=== PATIENT | female | born 1975 | race Caucasian/White ===

== ENCOUNTER 2022-09-19 09:59 | Outpatient (RCR) | payer OTHER, SELFPAY | END 2022-10-15 15:34 | disposition home or self-care (01) | LOC: PT 09:59 | PROVIDERS: PCP Family Medicine | DX: M25.569 Pain in unspecified knee (principal); S83.92XD Sprain of unspecified site of left knee, subsequent encounter | CPT/HCPCS: 97010; 97014; 97032; 97035; 97110; 97140; 97161; G0283 ==

== ENCOUNTER 2023-01-07 12:57 | Outpatient (RCR) | payer OTHER, SELFPAY | END 2023-04-06 09:00 | disposition home or self-care (01) | LOC: PT 12:57 | PROVIDERS: PCP Family Medicine; Visit Provider Orthopaedic Surgery | DX: Z98.890 Other specified postprocedural states (principal) | CPT/HCPCS: 97010; 97014; 97110; 97140; 97161 ==

== ENCOUNTER 2023-04-07 08:40 | Outpatient (RCR) | payer OTHER, SELFPAY | END 2023-04-11 14:52 | disposition home or self-care (01) | LOC: PT 08:40 | PROVIDERS: PCP Family Medicine; Visit Provider Orthopaedic Surgery | DX: Z98.890 Other specified postprocedural states (principal) | CPT/HCPCS: 97110; 97140 ==

== ENCOUNTER 2023-05-09 10:23 | Outpatient (OUT) | payer OTHER, SELFPAY ==
--- NOTE | 2023-05-09 10:32 | XR_ITS ---
The [address] [address] Patient Name: FIORELLA PERKINS MRN: [id number] date: 1975 Sex: F Assigned Patient Location: [facility] Current Patient Location: RAD Accession/Order Number: [id number] Exam Date: 05/09/2023 10:37 Report Date: 05/09/2023 11:00 At the request of: KACY CROOKS Procedure: XR calcaneus RT min 2V PROCEDURE: XR calcaneus RT min 2V DATE: 05/09/2023 10:37 AM EST COMPARISONS: None CLINICAL INDICATION: intractable right heel pain M79.671 FINDINGS: There is no evidence of fractures or other acute osseous abnormalities. There is a small spur off the posterior inferior os calcis. There are slightly talonavicular degenerative changes noted on lateral view. XR/XR calcaneus RT min 2V IMPRESSION: Right os calcis radiographs show no evidence of acute abnormalities. Small heel spur Electronically authenticated by: JOSUE POE Date: 05/09/2023 11:00
== END 2023-05-09 10:24 | disposition home or self-care (01) ==
LOC: RAD 10:28
PROVIDERS: PCP Family Medicine; Visit Provider Physician Assistant
DX: M79.671 Pain in right foot (principal)
CPT/HCPCS: 73650

== ENCOUNTER 2024-12-31 09:02 | Outpatient (OUT) | payer BC, SELFPAY ==
--- NOTE | 2024-12-31 09:15 | CA_ITS ---
Patient Name: FIORELLA PERKINS MR#: [id number] : 1975 Exam Date: 12/31/2024 Ordering Doctor: DR KACY BRYAN ECHOCARDIOGRAM REPORT PROCEDURE: CA ECHO DOPPLER COMPLETE INDICATIONS: HTN, Bilateral BHARATH, RIGO, ZHENG, Chest tightness, fatigue COMPARISON: None. DESCRIPTION: COMPLETE ECHOCARDIOGRAM Real-time transthoracic echocardiography with 2D, M-mode, spectral and color flow Doppler performed. QUALITY: Technical quality was good. LEFT VENTRICLE: The left ventricle is normal in size. Global left ventricular systolic function is normal. LV EF: Estimated left ventricular ejection fraction is 60-65%. DIASTOLIC: Normal diastolic function. ATRIAL SEPTUM: LEFT ATRIUM: Normal chamber size. RIGHT ATRIUM: Mild dilatation. RIGHT VENTRICLE: Normal chamber size. Normal right ventricular systolic function. TRICUSPID VALVE: Normal mobility and thickness. No stenosis with trivial regurgitation. Unable to assess right-sided pressures due to lack of measurable tricuspid regurgitation. MITRAL VALVE: Normal mobility and thickness. No evidence of mitral valve stenosis. There is no mitral annular calcification. No mitral regurgitation. AORTIC VALVE: Normal trileaflet appearance. No visible sclerosis. Normal leaflet mobility. No evidence of aortic valve stenosis. No aortic regurgitation. AORTIC ROOT: Normal diameter and appearance, measuring 3.3 cm. The ascending aorta is normal in size measuring 2.7 cm. PULMONIC VALVE: Normal thickness and mobility. No stenosis. Trivial regurgitation. PERICARDIUM: No evidence of pericardial effusion. IVC: Collapses with inspiration. Mildly dilated at 2.3 cm. PLEURA: CONCLUSION: 1. Normal ventricular size and systolic function. Estimated LVEF is 60-65%. 2. Normal diastolic function. 3. No significant valvular dysfunction. 4. Unable to assess right-sided pressures due to lack of measurable tricuspid regurgitation. Adult Echocardiography Procedure Report Left Ventricle LVEDD (3.7 - 5.6 cm): 5.60 cm LVESD (2.2 - 4.0 cm): 3.72 cm LVIVS thickness (0.6 - 1.2 cm): 0.99 cm LVPW thickness (0.5 - 1.0 cm): 1.05 cm e': 0.10 m/s E - e': 8.80 LVOT Max Gradient: 4.19 mm[Hg] LVOT Area (cm2): 1.02 m/s Peak Velocity (LVOT): 1.02 m/s Mean Velocity (LVOT): 0.67 m/s LVOT Diameter 2.26 cm Left Ventricular Ejection Fraction: 60-65 % Left Atrium LA Volume Index (2D A2C): 24.39 ml/m2 Left Atrium Systolic Dimension: 4.23 cm Mitral Valve MV E to A Ratio: 1.08 Mitral Valve A-Wave Peak Velocity: 0.80 m/s Mitral Valve E-Wave Peak Velocity: 0.87 m/s Right Ventricle RV Internal Diastolic Dimension: 3.60 cm Aorta AO Root Diam: 3.29 cm Ascending Ao Diam: 2.65 cm Aortic Valve AoV Area (Pe[place]): 2.97 cm2, 3.02 cm2 AoV Area (VTI): 2.99 cm2, 2.99 cm2 Peak Velocity(Antegrade Flow): 1.36 m/s, 1.41 m/s Peak Gradient(Antegrade Flow): 7.41 mm[Hg], 7.91 mm[Hg] Mean Velocity(Antegrade Flow): 0.88 m/s, 0.88 m/s Mean Gradient(Antegrade Flow): 3.65 mm[Hg], 3.72 mm[Hg] Velocity Time Integral: 28.84 cm, 28.75 cm Tricuspid Valve Peak Velocity (Regurgitant Flow): Pulmonic Valve Mean Gradient: 2.11 mm[Hg], 1.26 mm[Hg] Mean Velocity: 0.66 m/s, 0.52 m/s Peak Velocity: 0.95 m/s Peak Gradient: 4.45 mm[Hg], 2.80 mm[Hg] Right Atrium Right Atrium Systolic Pressure: 65.18 ml, 65.18 ml Dictated by: Eric Olmedo M.D. on 12/31/2024 at 14:37 Approved by: Eric Olmedo M.D. on 12/31/2024 at 14:41
--- OUTSIDE RECORDS SUMMARY | 2024-12-31 09:16 | XMS_ITS | CCD ---
Author Organization [facility] Care Team Providers Care Manager Nuclear Name Role Phone Free, Text Entry Unavailable Unavailable Sade Kerr Unavailable Unavailable Nikki MUHAMMAD Primary Care Physician [phone] PETRONA PERDOMO Primary Care Physician Afia García Unavailable Unavailable Petrona Perdomo MD Primary Care Provider Petrona Perdomo MD Unavailable Keyon BAGMAN/WOMAN, Nikki Kraft Unavailable Unavai Crescencio Salgado Admitting Unavailable ERNST, Crescencio Guo Attending Unavailable ERNST, Crescencio Guo Referring Unavailable Carolina, Saad Guo Attending Unavailable Carolina, Saad Guo Referring Unavailable Carolina, Saad Guo Admitting Unavailable ERNST, Crescencio Guo Attending Unavailable ERNST, Crescencio Guo Attending Unavailable Carolina, Saad Guo Attending Unavailable Carolina, Saad Guo Referring Unavailable Carolina, Saad Guo Admitting Unavailable Keyon BAGMAN/WOMAN, Nikki Kraft Unavailable Keyon BAGMAN/WOMAN, Nikki A Unavailable AKASH CROOKS Attending Unavailable ROQUE AIKEN Attending Unavailable AKASH CROOKS Referring Unavailable ROQUE AIKEN Referring Unavailable ROQUE AIKEN Attending Unavailable ROQUE AIKEN Referring Unavailable AKASH CROOKS Attending Unavailable AKASH CROOKS Attending Unavailable Allergies Allergy Classification Reported Allergen(s) Allergy Type Date of Onset Reaction(s) Facility Acetaminophen / HYDROcodone (1 source) Acetaminophen / HYDROcodone; Translations: [Vicodin] Drug Allergy [facility] (1 source) guaiFENesin / HYDROcodone Drug Allergy Itching [facility] (4 sources) Acetaminophen / HYDROcodone; Translations: [acetaminophen-hyd rocodone] Drug Allergy Itching [facility] Comment on above: itchiness (20 sources) Acetaminophen / HYDROcodone Drug Allergy 08-22-2022 Rash [facility] Work Phone: Medications Current Medications Medication Drug Class(es) Dates Sig (Normalized) Sig (Original) [id number] actuat albuterol 0.09 mg/actuat metered dose inhaler (20 sources) beta2-Adrenergic Agonist Start: 08-23-2024 take 2 puff(s) by inhalation every six hours for wheezing albuterol HFA 90 mcg/act inhaler Indications: Moderate persistent asthma without complication (HCC) Inhale 2 puffs every 6 (six) hours if needed for wheezing or shortness of breath 18 g 5 08/23/2024 Active Start: 08-21-2023 take 2 puff(s) by in halation every six hours for wheezing albuterol HFA 90 mcg/act inhaler Indications: Moderate persistent asthma without complication (CMS/HCC) Inhale 2 puffs every 6 (six) hours if needed for wheezing or shortness of breath 18 g 5 08/21/2023 Active Start: 09-10-2022 take 2 puff(s) by in halation every six hours for wheezing albuterol HFA 90 mcg/act inhaler Indications: Moderate persistent asthma without complication (CMS/HCC) Inhale 2 puffs every 6 (six) hours if needed for wheezing or shortness of breath. 18 g 5 09/10/2022 Active Breztri Aerosphere (3 sources) Start: 09-16-2022 take 1 puff(s) by inhalation twice daily Breztri Aerosphere 1 puff, Inhalation, BID, Refill(s) 0, Other (see comment) Start Date: 09/16/22 Status: Ordered Start: 09-16-2022 Breztri Aerosp here Refill(s) 0 Start Date: 09/16/22 Status: Ordered brompheniramine maleate 0.4 mg/ml / dextromethorphan hydrobromide 2 mg/ml / pseudoephedrine hydrochloride 6 mg/ml oral solution (1 source) alpha-Adrenergic Agonist, Uncompetitive H-adqphz-T-aspartate Receptor Antagonist, Sigma-1 Agonist Start: 03-21-2021 take 5 mL by mouth four times daily for cough and congestion Bromfed DM oral syrup 5 mL, Oral, QID for cough and congestion, 120 mL, Refill(s) 0, [facility], 165, cm, 03/21/21 7:17:00 EST, Height/Length Dosing, 117, kg, 03/21/21 7:17:00 EST, Weight Dosing Start Date: 03/21/21 Status: Ordered 120 actuat budesonide 0.16 mg/actuat / formoterol fumarate 0.0048 mg/actuat / glycopyrrolate 0.009 mg/actuat metered dose inhaler (13 sources) Corticosteroid, beta2-Adrenergic Agonist Start: 12-24-2024 take 2 puff(s) by inhalation in the morning Budeson-Glycopyr rol-Formoterol (Breztri Aerosphere) 160-9-4.8 MCG/ACT aerosol Indications: Moderate persistent asthma without complication (HCC) Inhale 2 puffs in the morning and 2 puffs before bedtime. 10.7 g 5 12/24/2024 Active Start: 12-24-2024 take 2 puff(s) by inhalation in the morning Wuyqvtq-Eacnbgpjuiq-Ljncuhenos (Breztri Aerosphere) 160-9-4.8 MCG/ACT aerosol Indications: Moderate persistent asthma without complication (HCC) Inhale 2 puffs in the morning and 2 puffs before bedtime. 10.7 g 5 12/24/2024 Active Start: 08-21-2023 End: 07-02-2024 take 2 puff(s) by inhalation in the morning Bklxslh-Qakaflmlzem-Xxdlkonnbo (Breztri Aerosphere) 160-9-4.8 MCG/ACT aerosol Indications: Moderate persistent asthma without complication (CMS/HCC) Inhale 2 puffs in the morning and 2 puffs before bedtime. 10.7 g 5 08/21/2023 07/02/2024 Discontinued (Cost of medication) Start: 03-25-2023 take 2 puff(s) by inhalation in the morning Sclrfea-Hecmziqkbha-Ggbziokasu (Breztri Aerosphere) 160-9-4.8 MCG/ACT aerosol Indications: Moderate persistent asthma without complication (CMS/HCC) Inhale 2 puffs in the morning and 2 puffs before bedtime. 10.7 g 5 03/25/2023 Active cephalexin 500 mg oral tablet (1 source) Cephalosporin Antibacterial Start: 09-21-2021 End: 09-27-2021 take 1 tablet by mouth twice daily cephalexin 500 mg oral tablet ; 1 tab(s) orally 2 times a day Quantity: 14 Refills: 0 Ordered: 21-Sep-2021 Cirilo, Sade Start: 21-Sep-2021 End: 27-Sep-2021 Generic Substitution Allowed Comments: Finish all this medication unless otherwise directed by prescriber. Comment on above: Finish all this medi cation unless otherwise directed by prescriber. cetirizine hydrochloride 10 mg oral tablet (20 sources) Histamine-1 Receptor Antagonist Start: 03-21-2021 take 1 tablet by mouth once daily cetirizine 10 mg Tab 10 mg = 1 tab(s), Oral, Daily, Refills(s) 0, Other (see comment) Start Date: 03/21/21 Status: Ordered cyclobenzaprine hydrochloride 10 mg oral tablet (20 sources) Muscle Relaxant Start: 07-05-2024 take 1 tablet by mouth three times daily as needed for muscle spasms cyclobenzaprine (Flexeril) 10 MG tablet Indications: Muscle spasms of both lower extremities Take 1 tablet (10 mg) by mouth 3 (three) times a day as needed for muscle spasms 90 tablet 2 07/05/2024 Active Start: 06-06-2023 End: 07-02-2024 take 1 tablet by mouth three times daily as needed for muscle spasms cyclobenzaprine (Flexeril) 10 MG tablet Indications: Muscle spasms of both lower extremities Take 1 tablet (10 mg) by mouth 3 (three) times a day as needed for muscle spasms 90 tablet 2 07/02/2024 Active Start: 09-16-2022 take 0.5-1 tablets b y mouth twice daily as needed for muscle spasms cyclobenzaprine (Flexeril) 10 MG tablet See Instructions, PRN for spasm, 1/2 - 1 tab po BID prn, # 30 tab(s), Refills(s) 0, Pharmacy: [facility], 165, cm, 03/21/21 7:17:00 EST, Height/Length Dosing, 117, kg, 03/21/21 7:17:00 EST, Weight Dosing 0 09/16/2022 Active fluticasone 0.05 mg/inh Nasal [place] (4 sources) Start: 03-21-2021 fluticasone 0. 05 mg/inh Nasal [place] 2 spray(s), Nasal, Daily Congestion, 16 gram, Refill(s) 0, each nostril, [facility] #16, 165, cm, 03/21/21 7:17:00 EST, Height/Length Dosing, 117, kg, 03/21/21 7:17:00 EST, Weight Dosing Start Date: 03/21/21 Status: Ordered furosemide 20 mg oral tablet (10 sources) Loop Diuretic Start: 10-03-2023 End: 01-23-2024 take 0.5-1 tablets by mouth once daily as needed furosemide (Lasix) 20 MG tablet Indications: Bilateral lower extremity edema Take 0.5-1 tablets (10-20 mg) by mouth Daily as needed (swelling) 30 tablet 5 10/03/2023 01/23/2024 Discontinued (Other) Start: 03-25-2023 End: 05-09-2023 take 1 tablet by mouth in the morning furosemide (Lasix) 40 MG tablet Indications: Generalized edema Take 1 tablet (40 mg) by mouth in the morning. 100 tablet 3 03/25/2023 05/09/2023 Discontinued (Side effects) Start: 09-16-2022 take 40 mg by mouth once daily Lasix 40 mg, Oral, Daily, diuretic/water pill Start Date: 09/16/22 Status: Ordered Start: 09-16-2022 Lasix Start Da te: 09/16/22 Status: Ordered glucosamine sulfate 1000 mg oral capsule (2 sources) Start: 11-22-2022 take 1 tablet by mouth once daily glucosamine 1000 mg oral capsule one tab, Oral, Daily, Refills(s) 0, Pain Start Date: 11/22/22 Status: Ordered ibuprofen 800 mg oral tablet (17 sources) Nonsteroidal Anti-inflammatory Drug Start: 08-23-2024 take 1 tablet by mouth every eight hours for pain ibuprofen 800 MG tablet Indications: Left anterior knee pain Take 1 tablet (800 mg) by mouth every 8 (eight) hours if needed for mild pain 100 tablet 3 08/23/2024 Active Start: 08-21-2023 take 1 tablet by thiago th every eight hours for pain ibuprofen 800 MG tablet Indications: Left anterior knee pain Take 1 tablet (800 mg) by mouth every 8 (eight) hours if needed for mild pain 90 tablet 5 08/21/2023 Active lisinopril 10 mg oral tablet (17 sources) Angiotensin Converting Enzyme Inhibitor Start: 09-08-2024 take 1 tablet by mouth once daily lisinopril 10 MG tablet Indications: Primary hypertension Take 1 tablet (10 mg) by mouth Daily 100 tablet 3 09/08/2024 Active Start: 09-17-2023 take 1 tablet by thiago th once daily lisinopril 10 MG tablet Indications: Primary hypertension (CMS/HCC) Take 1 tablet (10 mg) by mouth Daily 90 tablet 3 09/17/2023 Active magnesium citrate (11 sources) take 400 mg by mouth once daily MAGNESIUM CITRATE PO Take 400 mg by mouth Daily Active methylPREDNISolone (6 sources) Corticosteroid Start: 07-15-2024 End: 12-24-2024 methylPREDNISolone (Medrol Dospak) 4 MG tablets Indications: Metatarsal deformity, left Follow schedule on MEDROL PACK package instructions to be used as directed 21 tablet 07/15/2024 12/24/2024 Discontinued (Other) Start: 07-15-2024 methylPREDNISo lone (Medrol Dospak) 4 MG tablets Indications: Metatarsal deformity, left Follow schedule on MEDROL PACK package instructions to be used as directed 21 tablet 07/15/2024 Active 24 hr metoprolol succinate 25 mg extended release oral tablet (20 sources) beta-Adrenergic Laila Start: 09-08-2024 take 1 tablet by mouth once daily metoprolol succinate XL (Toprol-XL) 25 MG 24 hr tablet Indications: Primary hypertension TAKE 1 TABLET BY MOUTH EVERY DAY *DO NOT CRUSH OR CHEW* 100 tablet 3 09/08/2024 Active Start: 09-17-2023 take 1 tablet by thiago th once daily metoprolol succinate XL (Toprol-XL) 25 MG 24 hr tablet Indications: Primary hypertension (CMS/HCC) Take 1 tablet (25 mg) by mouth Daily Do not crush or chew. 100 tablet 3 09/17/2023 Active Start: 03-25-2023 take 1 tablet by thiago th every twenty-four hours in the morning metoprolol succinate XL (Toprol-XL) 25 MG 24 hr tablet Indications: Primary hypertension (CMS/HCC) Take 1 tablet (25 mg) by mouth in the morning. Do not crush or chew.. 30 tablet 2 03/25/2023 Active Misc Natural Products (BEET ROOT PO) (11 sources) End: 12-24-2024 take 1 tablet by mouth once daily Misc Natural Products (BEET ROOT PO) Take 1 tablet by mouth Daily [place] Beets Supplement 12/24/2024 Discontinued (Other) take 1 tablet by mouth once becky y Misc Natural Products (BEET ROOT PO) Take 1 tablet by mouth Daily [place] Beets Supplement Active Multiple Vitamin (MULTIVITAMIN ADULT PO) (11 sources) take 1 tablet by mouth once daily Multiple Vitamin (MULTIVITAMIN ADULT PO) Take 1 tablet by mouth Daily Active naproxen 500 mg oral tablet (3 sources) Nonsteroidal Anti-inflammatory Drug Start: 023 take 1 tablet by mouth twice daily Naprosyn 500 mg Tab 500 mg = 1 tab(s), Oral, BID, # 20 tab(s), Refills(s) 0, Pharmacy: [facility], 165, cm, 03/21/21 7:17:00 EST, Height/Length Dosing, 117, kg, 03/21/21 7:17:00 EST, Weight Dosing Start Date: 09/16/22 Status: Ordered olmesartan medoxomil 20 mg oral tablet (2 sources) Angiotensin 2 Receptor Laila Start: 024 take 1 tablet by mouth in the morning olmesartan (Benicar) 20 MG tablet Indications: Primary hypertension (CMS/HCC) Take 1 tablet (20 mg) by mouth in the morning. 30 tablet 5 05/09/2023 Active 24 hr oxybutynin chloride 5 mg extended release oral tablet (4 sources) Cholinergic Muscarinic Antagonist Start: 021 take 1 tablet by mouth once daily oxybutynin 5 mg ER Tab 5 mg = 1 tab(s), Oral, Daily, # 30 tab(s), Refills(s) 1, Pharmacy: [facility] #16, 165, cm, 03/21/21 7:17:00 EST, Height/Length Dosing, 117, kg, 03/21/21 7:17:00 EST, Weight Dosing Start Date: 03/21/21 Status: Ordered phentermine hydrochloride 37.5 mg oral tablet (9 sources) Sympathomimetic Amine Anorectic Start: End: take 1 tablet by mouth before mealtime phentermine (Adipex-P) 37.5 MG tablet Indications: Morbid obesity (CMS-HCC) Take 1 tablet (37.5 mg) by mouth in the morning. Take before meals. 30 tablet 12/24/2024 01/23/2025 Active Start: 10-03-2023 End: 02-05-2024 take 1 tablet by mouth before mealtime phentermine (Adipex-P) 37.5 MG tablet Indications: Morbid obesity (CMS/HCC) Take 1 tablet (37.5 mg) by mouth in the morning. Take before meals. 30 tablet 11/28/2023 12/28/2023 Active Probiotic Product (PROBIOTIC PO) (11 sources) take 1 capsule by mouth once daily Probiotic Product (PROBIOTIC PO) Take 1 capsule by mouth Daily Active Therapeutic Multiple Vitamins oral tablet (4 sources) Start: 04-26-2019 take 1 tablet by mouth once daily Therapeutic Multiple Vitamins oral tablet 1 tab(s), Oral, Daily, Prophylaxis Start Date: 04/26/19 Status: Ordered Completed/Discontinued Medications Medication Drug Class(es) Dates Sig (Normalized) Sig (Original) garlic preparation 10 mg oral capsule (5 sources) Non-Standardized Food Allergenic Extract End: 07-02-2024 Garlic 10 MG capsule Take by mouth Daily 07/02/2024 Discontinued Garlic 10 MG cap rajni Take by mouth Daily Active pantoprazole 20 mg delayed release oral tablet (14 sources) Proton Pump Inhibitor Start: 09-17-2023 End: 07-02-2024 take 1 tablet by mouth before mealtime pantoprazole (ProtoNix) 20 MG EC tablet Indications: Chronic GERD Take 1 tablet (20 mg) by mouth in the morning. Take before meals. 100 tablet 3 09/17/2023 07/02/2024 Discontinued (Therapy completed) Start: 03-18-2023 take 1 tablet by thiago th before mealtime pantoprazole (ProtoNix) 20 MG EC tablet Indications: Chronic GERD Take 1 tablet (20 mg) by mouth in the morning. Take before meals. 100 tablet 3 03/18/2023 Active Start: 09-16-2022 take 20 mg by mouth once daily pantoprazole 20 mg, Oral, Daily, Control of stomach acid Start Date: 09/16/22 Status: Ordered Start: 09-16-2022 pantoprazole S tart Date: 09/16/22 Status: Ordered ProAir HFA 90 mcg/inh inhalation aerosol (4 sources) Start: 07-19-2020 take 1 dose by inhalation every six hours ProAir HFA 90 mcg/inh inhalation aerosol 2 puff(s), Inhalation, q6hr for wheezing, 1 EA, Refill(s) 1, [facility] #16, 165, cm, 07/19/20 10:07:00 EDT, Height/Length Dosing, 114.5, kg, 07/19/20 10:07:00 EDT, Weight Dosing Start Date: 07/19/20 Status: Ordered Semaglutide-Weight Management (Wegovy) 0.25 MG/0.5ML solution auto-injector (6 sources) Start: 01-28-2024 End: 07-02-2024 inject 0.25 mg by subcutaneous injection every week Semaglutide-Weight Management (Wegovy) 0.25 MG/0.5ML solution auto-injector Indications: Primary hypertension (CMS/HCC) , Morbid obesity (CMS/HCC) Inject 0.25 mg under the skin 1 (one) time per week Getting through [facility] in [place] 01/28/2024 07/02/2024 Discontinued (Ineffective) Start: 01-28-2024 inject 0.25 mg by ferrari bcutaneous injection every week Semaglutide-Weight Management (Wegovy) 0.25 MG/0.5ML solution auto-injector Indications: Primary hypertension (CMS/HCC) , Morbid obesity (CMS/HCC) Inject 0.25 mg under the skin 1 (one) time per week Getting through [facility] in [place] 01/28/2024 Active Start: 01-23-2024 End: 01-28-2024 inject 0.25 mg by subcutaneous injection every week Semaglutide-Weight Management (Wegovy) 0.25 MG/0.5ML solution auto-injector Indications: Primary hypertension (CMS/HCC) , Morbid obesity (CMS/HCC) Inject 0.25 mg under the skin 1 (one) time per week 2 mL 1 01/23/2024 01/28/2024 Discontinued Start: 01-23-2024 inject 0.25 mg by ferrari bcutaneous injection every week Semaglutide-Weight Management (Wegovy) 0.25 MG/0.5ML solution auto-injector Indications: Primary hypertension (CMS/HCC) , Morbid obesity (CMS/HCC) Inject 0.25 mg under the skin 1 (one) time per week 2 mL 1 01/23/2024 Active sodium chloride 0.111 meq/ml nasal spray (4 sources) Start: 03-21-2021 [place] 0.65% Na gerardo [place] 2 spray(s), Nasal, QID Congestion, 1 EA, Refill(s) 0, [facility] #16, 165, cm, 03/21/21 7:17:00 EST, Height/Length Dosing, 117, kg, 03/21/21 7:17:00 EST, Weight Dosing Start Date: 03/21/21 Status: Ordered thiamine 50 mg oral tablet (5 sources) End: 07-02-2024 take 1 tablet by mouth once daily thiamine (Vitamin B-1) 50 MG tablet Take 50 mg by mouth Daily 07/02/2024 Discontinued Problems Active Problems Problem Classification Problem Date Documented Da te Episodic/Chronic Abdominal pain (20 sources) Pain in pelvis; Translations: [Epigastric pain] Onset: 2 Resolved: 5 07-19-2020 Episodic Anxiety disorders (20 sources) Generalized anxiety disorder; Translations: [Generalized anxiety disorder] Onset: 2 Resolved: 4 04-29-2019 Chronic Asthma (20 sources) Uncomplicated moderate persistent asthma; Translations: [Moderate persistent asthma, uncomplicated] Onset: 3 10-09-2022 Chronic Calix (2 sources) Burn 09-21-2021 Episodic Comment on above: BURN Endometriosis (20 sources) Uterine adenomyosis; Translations: [Adenomyosis] Onset: 2 Resolved: 3 08-22-2022 Chronic Esophageal disorders (20 sources) Gastroesophageal reflux disease; Translations: [Gastro-esophageal reflux disease without esophagitis] Onset: 3 11-22-2022 Chronic Essential hypertension (20 sources) Essential hypertension; Translations: [Essential (primary) hypertension] Onset: 3 03-18-2023 Chronic Fracture of lower limb (4 sources) Stress fracture of left foot; Translations: [Stress fracture, left foot, initial encounter for fracture] 07-15-2024 Episodic Genitourinary symptoms and ill-defined conditions (20 sources) Genuine stress incontinence; Translations: [Urge incontinence of urine] Onset: 3 03-21-2021 Chronic Genitourinary symptoms and ill-defined conditions (20 sources) Increased frequency of urination; Translations: [Frequency of micturition] Onset: 3 Resolved: 5 03-21-2021 Episodic Headache; including migraine (20 sources) Generalized headache; Translations: [Generalized headaches] Onset: 3 07-04-2020 Episodic Malaise and fatigue (20 sources) Fatigue; Translations: [Chronic fatigue, unspecified] Onset: 3 08-22-2022 Chronic Malaise and fatigue (20 sources) Fatigue; Translations: [Other fatigue] Onset: 3 Resolved: 4 07-04-2020 Episodic Mood disorders (4 sources) Depressive disorder 06-18-2013 Chronic Nonspecific chest pain (20 sources) Precordial pain; Translations: [Other chest pain] Onset: 2 Resolved: 5 07-04-2020 Episodic Osteoarthritis (4 sources) Arthritis 06-18-2013 Chronic Other acquired deformities (3 sources) Deformity of metatarsal; Translations: [Unspecified acquired deformity of left lower leg] 07-15-2024 Episodic Other connective tissue disease (20 sources) Fibromyalgia; Translations: [Fibromyalgia] Onset: 3 04-26-2019 Episodic Other connective tissue disease (1 source) Heel pain; Translations: [Pain in right foot] 05-09-2023 Episodic Other connective tissue disease (6 sources) Pain in both feet; Translations: [Pain in right foot] 07-02-2024 Episodic Other connective tissue disease (2 sources) Spasm; Translations: [Other muscle spasm] 07-02-2024 Episodic Other connective tissue disease (2 sources) Pain in left foot; Translations: [Pain in left foot] 07-15-2024 Episodic Other endocrine disorders (20 sources) Hyperinsulinism; Translations: [Other hypoglycemia] Onset: 3 08-22-2022 Chronic Other infections; including parasitic (20 sources) Personal history of other infectious and parasitic diseases; Translations: [History of COVID-19] Onset: 3 09-06-2022 Episodic Other lower respiratory disease (6 sources) Dyspnea on exertion; Translations: [Other forms of dyspnea] Onset: 5 12-24-2024 Episodic Other nervous system disorders (20 sources) Notalgia paresthetica; Translations: [Paresthesia of skin] Onset: 3 08-22-2022 Episodic Other non-traumatic joint disorders (20 sources) Anterior knee pain; Translations: [Pain in left knee] Onset: 3 08-22-2022 Episodic Other nutritional; endocrine; and metabolic disorders (20 sources) Morbid obesity; Translations: [Morbid (severe) obesity due to excess calories] Onset: 3 07-04-2020 Chronic Other nutritional; endocrine; and metabolic disorders (20 sources) Weight increased; Translations: [Abnormal weight gain] Onset: 3 08-22-2022 Episodic Phlebitis; thrombophlebitis and thromboembolism (20 sources) H/O: thrombosis; Translations: [Personal history of other venous thrombosis and embolism] Onset: 3 08-11-2020 Episodic Residual codes; unclassified (20 sources) Obstructive sleep apnea syndrome; Translations: [Obstructive sleep apnea (adult) (pediatric)] Onset: 3 07-03-2023 Chronic Residual codes; unclassified (20 sources) History of arthroscopy of knee joint; Translations: [Other specified postprocedural states] Onset: 3 12-26-2022 Episodic Residual codes; unclassified (20 sources) Bilateral lower limb edema; Translations: [Localized edema] Onset: 3 03-18-2023 Episodic Screening and history of mental health and substance abuse codes (20 sources) Ex-smoker; Translations: [Personal history of nicotine dependence] Onset: 3 03-21-2021 Episodic Superficial injury; contusion (2 sources) Contusion of left foot; Translations: [Contusion of left foot, initial encounter] 07-15-2024 Episodic Unclassified (4 sources) History of SARS-CoV-2 07-04-2020 Past or Other Problems Problem Classification Problem Date Documented Date Episodic/Chronic Administrative/social admission (18 sources) Patient encounter status; Translations: [Encounter for examination for insurance purposes] Onset: 10-20-2022 10-20-2022 Episodic Joint disorders and dislocations; trauma-related (20 sources) Tear of meniscus of knee; Translations: [Acute tear of lateral meniscus of left knee] Onset: 10-20-2022 Resolved: 12-24-2024 11-22-2022 Episodic Mycoses (20 sources) Onychomycosis of toenails; Translations: [Tinea unguium] Onset: 10-09-2022 Resolved: 12-24-2024 10-09-2022 Episodic Other nutritional; endocrine; and metabolic disorders (20 sources) Body mass index 40+ - severely obese; Translations: [Body mass index (BMI) 40.0-44.9, adult] Onset: 09-06-2022 Resolved: 09-06-2022 07-04-2020 Chronic Other nutritional; endocrine; and metabolic disorders (5 sources) Weight gain; Translations: [Abnormal weight gain] Onset: 08-22-2022 08-22-2022 Episodic Other skin disorders (20 sources) Eruption; Translations: [Rash and other nonspecific skin eruption] Onset: 08-22-2022 Resolved: 12-24-2024 08-22-2022 Episodic Otitis media and related conditions (20 sources) Bilateral disorder of Eustachian tubes; Translations: [Unspecified Eustachian tube disorder, bilateral] Onset: 09-06-2022 Resolved: 12-24-2024 08-07-2020 Episodic Residual codes; unclassified (3 sources) Sleep apnea; Translations: [Sleep apnea, unspecified] Onset: 08-22-2022 Resolved: 10-09-2022 10-09-2022 Chronic Residual codes; unclassified (20 sources) Edema, generalized; Translations: [Generalized edema] Onset: 08-22-2022 Resolved: 03-18-2023 03-18-2023 Episodic Unclassified (4 sources) Neoplasm, benign (morphologic abnormality) 04-29-2019 Comment on above: left foot Unclassified (4 sources) Blood clot (morphologic abnormality) 06-13-2010 Results Test Name Value Interpretation Reference Range Facility CULTURE, URINE, ROUTINEon CULTURE, URINE, ROUTINE SEE NOTE Normal [facility] Comment on above: Result Comment: CULTURE, URINE, ROUTINE Micro Number: [id number] Test Status: Final Specimen Source: Urine Specimen Quality: Adequate Result: Mixed genital kavitha isolated. These superficial bacteria are not indicative of a urinary tract infection. No further organism identification is warranted on this specimen. If clinically indicated, recollect clean-catch, mid-stream urine and transfer immediately to Urine Culture Transport Tube. Performed By: #### 3 95, %SBCULI, 3020 #### [facility] of [address], [address] [place] [address] Vocal Artist: Phoenix Mcmahan MD REFLEXIVE URINE CULTUREon REFLEXIVE URINE CULTURE Normal [facility] Comment on above: Result Comment: CULT URE INDICATED - RESULTS TO FOLLOW Performed By: #### 3 95, %SBCULI, 3020 #### [facility] [address], [address] [place] [address] Vocal Artist: Phoenix Mcmahan MD URINALYSIS, COMPLETE W/REFLE X TO CULTUREon 12-26-2024 Appearance (U) CLEAR Normal CLEAR [facility] Comment on above: Performed By: #### 3 95, %SBCULI, 3020 #### [facility] [address], [address] [place] [address] Vocal Artist: Phoenix Mcmahan MD BACTERIA NONE SEEN Normal NONE SEEN [facility] Comment on above: Performed By: #### 3 95, %SBCULI, 3020 #### [facility] [address], [address] [place] [address] Vocal Artist: Phoenix Mcmahan MD Bilirubin Ql (U) Negative Normal NEGATIVE [facility] Comment on above: Performed By: #### 3 95, %SBCULI, 3020 #### [facility] [address], [address] [place] [address] Vocal Artist: Phoenix Mcmahan MD Color (U) YELLOW Normal YELLOW [facility] Comment on above: Performed By: #### 3 95, %SBCULI, 3020 #### [facility] of [place] [address] Vocal Artist: Phoenix Mcmahan MD Glucose Ql (U) Negative Normal NEGATIVE [facility] Comment on above: Performed By: #### 3 95, %SBCULI, 3020 #### [facility] [place] [address] Vocal Artist: Phoenix Mcmahan MD HYALINE CAST NONE SEEN Normal NONE SEEN [facility] Comment on above: Performed By: #### 3 95, %SBCULI, 3020 #### [facility] [place] [address] Vocal Artist: Phoenix Mcmahan MD Ketones Ql (U) Negative Normal NEGATIVE [facility] Comment on above: Performed By: #### 3 95, %SBCULI, 3020 #### [facility] of [place] [address] Vocal Artist: Phoenix Mcmahan MD Leukocyte esterase Test strip Ql (U) TRACE Abnormal NEGATIVE [facility] Comment on above: Performed By: #### 3 95, %SBCULI, 3020 #### [facility] [place] [address] Vocal Artist: Phoenix Mcmahan MD Nitrite Ql (U) Negative Normal NEGATIVE [facility] Comment on above: Performed By: #### 3 95, %SBCULI, 3020 #### [facility] [place] [address] Vocal Artist: Phoenix Mcmahan MD NOTE Normal [facility] Comment on above: Result Comment: This urine was analyzed for the presence of WBC, RBC, bacteria, casts, and other formed elements. Only those elements seen were reported. Performed By: #### 3 95, %SBCULI, 3020 #### [facility] [place] [address] Vocal Artist: Phoenix Mcmahan MD OCCULT BLOOD Negative Normal NEGATIVE [facility] Comment on above: Performed By: #### 3 95, %SBCULI, 3020 #### [facility] of [place] [address] Vocal Artist: Phoenix Mcmahan MD pH (U) 6.0 [pH] Normal 5.0-8.0 [facility] Comment on above: Performed By: #### 3 95, %SBCULI, 3020 #### [facility] of [address], [address] [place] [address] Vocal Artist: Phoneix Mcmahan MD Protein Ql (U) TRACE Abnormal NEGATIVE [facility] Comment on above: Performed By: #### 3 95, %SBCULI, 3020 #### [facility] [place] [address] Vocal Artist: Phoenix Mcmahan MD RBC 0-2 Normal < OR = 2 [facility] Comment on above: Performed By: #### 3 95, %SBCULI, 3020 #### [facility] [place] [address] Vocal Artist: Phoenix Mcmahan MD Specific gravity (U) [Rel density] 1.017 Normal 1.001-1.035 [facility] Comment on above: Performed By: #### 3 95, %SBCULI, 3020 #### [facility] [place] [address] Vocal Artist: Phoenix Mcmahan MD SQUAMOUS EPITHELIAL CELLS NONE SEEN Normal < OR = 5 [facility] Comment on above: Performed By: #### 3 95, %SBCULI, 3020 #### [facility] [place] [address] Vocal Artist: Phoenix Mcmahan MD WBC NONE SEEN Normal < OR = 5 [facility] Comment on above: Performed By: #### 3 95, %SBCULI, 3020 #### [facility] of [place] [id number] Vocal Artist: Phoenix Mcmahan MD CBC (INCLUDES DIFF/PLT)on Basophils (Bld) [#/Vol] 0.039 10*3/uL Normal 0-200 [facility] Comment on above: Performed By: #### 6 399, 496, 7600, 29791 #### [facility] [place] [address] Vocal Artist: Phoenix Mcmahan MD Basophils/100 WBC (Bld) 0.5 % Normal [facility] Comment on above: Performed By: #### 6 399, 496, 7600, 40242 #### [facility] [place] [address] Vocal Artist: Phoenix Mcmahan MD Eosinophils (Bld) [#/Vol] 0.216 10*3/uL Normal 15-500 [facility] Comment on above: Performed By: #### 6 399, 496, 7600, 70280 #### [facility] [place] [address] Vocal Artist: Phoenix Mcmahan MD Eosinophils/100 WBC (Bld) 2.8 % Normal [facility] Comment on above: Performed By: #### 6 399, 496, 7600, 79228 #### [facility] [place] [address] Vocal Artist: Phoenix Mcmahan MD Erythrocyte distribution width (RBC) [Ratio] 13.4 % Normal 11.0-15.0 [facility] Comment on above: Performed By: #### 6 399, 496, 7600, 24519 #### [facility] [place] [address] Vocal Artist: Phoenix Mcmahan MD Hematocrit (Bld) [Volume fraction] 42.6 % Normal 35.0-45.0 [facility] Comment on above: Performed By: #### 6 399, 496, 7600, 82179 #### [facility] of [address] Vocal Artist: Phoenix Mcmahan MD Hemoglobin (Bld) [Mass/Vol] 13.7 g/dL Normal 11.7-15.5 [facility] Comment on above: Performed By: #### 6 399, 496, 7600, 96424 #### [facility] [place] [address] Vocal Artist: Phoenix Mcmahan MD Lymphocytes (Bld) [#/Vol] 2.133 10*3/uL Normal 850-3900 [facility] Comment on above: Performed By: #### 6 399, 496, 7600, 09662 #### [facility] [place] [address] Vocal Artist: Phoenix Mcmahan MD Lymphocytes/100 WBC (Bld) 27.7 % Normal [facility] Comment on above: Performed By: #### 6 399, 496, 7600, 83875 #### [facility] [place] [address] Vocal Artist: Phoenix Mcmahan MD MCH (RBC) [Entitic mass] 32.9 pg Normal 27.0-33.0 [facility] Comment on above: Performed By: #### 6 399, 496, 7600, 42214 #### [facility] [place] [address] Vocal Artist: Phoenix Mcmahan MD MCHC (RBC) [Mass/Vol] 32.2 g/dL Normal 32.0-36.[address] [facility] Comment on above: Result Comment: For adults, a slight decrease in the calculated MCHC value (in the range of 30 to 32 g/dL) is most likely not clinically significant; however, it should be interpreted with caution in correlation with other red cell parameters and the patient's clinical condition. Performed By: #### 6 399, 496, 7600, 11275 #### [facility] [place] [address] Vocal Artist: Phoenix Mcmahan MD MCV (RBC) [Entitic vol] 102.2 fL High 80.0-100.0 [facility] Comment on above: Performed By: #### 6 399, 496, 7600, 55151 #### [facility] [place] [address] Vocal Artist: Phoenix Mcmahan MD Monocytes (Bld) [#/Vol] 0.516 10*3/uL Normal 200-950 [facility] Comment on above: Performed By: #### 6 399, 496, 7600, 39090 #### [facility] [place] [address] Vocal Artist: Phoenix Mcmahan MD Monocytes/100 WBC (Bld) 6.7 % Normal [facility] Comment on above: Performed By: #### 6 399, 496, 7600, 63704 #### [facility] [place] [address] Vocal Artist: Phoenix Mcmahan MD Neutrophils (Bld) [#/Vol] 4.797 10*3/uL Normal 7086-4017 [facility] Comment on above: Performed By: #### 6 399, 496, 7600, 63321 #### [facility] [place] [address] Vocal Artist: Phoenix Mcmahan MD Neutrophils/100 WBC (Bld) 62.3 % Normal [facility] Comment on above: Performed By: #### 6 399, 496, 7600, 31931 #### [facility] [place] [address] Vocal Artist: Phoenix Mcmahan MD Platelet mean volume (Bld) [Entitic vol] 10.4 fL Normal 7.5-12.5 [facility] Comment on above: Performed By: #### 6 399, 496, 7600, 47207 #### [facility] [place] [address] Vocal Artist: Phoenix Mcmahan MD Platelets (Bld) [#/Vol] 240 10*3/uL Normal 140-400 [facility] Comment on above: Performed By: #### 6 399, 496, 7600, 75057 #### [facility] of [address], [address] [place] [address] Vocal Artist: Phoenix Mcmahan MD RBC (Bld) [#/Vol] 4.17 10*6/uL Normal 3.80-5.10 [facility] Comment on above: Performed By: #### 6 399, 496, 7600, 99751 #### [facility] of [address], [address] [place] [address] Vocal Artist: Phoenix Mcmahan MD WBC (Bld) [#/Vol] 7.7 10*3/uL Normal 3.8-10.8 [facility] Comment on above: Performed By: #### 6 399, 496, 7600, 01348 #### [facility] [place] [address] Vocal Artist: Phoenix Mcmahan MD COMPREHENSIVE METABOLIC PANE [facility] 12-25-2024 Albumin [Mass/Vol] 4.5 g/dL Normal 3.6-5.1 [facility] Comment on above: Performed By: #### 6 399, 496, 7600, 71208 #### [facility] [place] [address] Vocal Artist: Phoenix Mcmahan MD Albumin/Globulin [Mass ratio] 1.8 {ratio} Normal 1.0-2.5 [facility] Comment on above: Performed By: #### 6 399, 496, 7600, 45003 #### [facility] [place] [address] Vocal Artist: Phoenix Mcmahan MD ALP [Catalytic activity/Vol] 68 U/L Normal 31-125 [facility] Comment on above: Performed By: #### 6 399, 496, 7600, 64936 #### [facility] of [address], [address] [place] [address] Vocal Artist: Phoenix Mcmahan MD ALT [Catalytic activity/Vol] 39 U/L High 6-29 [facility] Comment on above: Performed By: #### 6 399, 496, 7600, 52283 #### [facility] [place] [address] Vocal Artist: Phoenix Mcmahan MD AST [Catalytic activity/Vol] 26 U/L Normal 10-35 [facility] Comment on above: Performed By: #### 6 399, 496, 7600, 74880 #### [facility] [place] [address] Vocal Artist: Phoenix Mcmahan MD Bilirubin [Mass/Vol] 0.7 mg/dL Normal 0.2-1.2 [facility] Comment on above: Performed By: #### 6 399, 496, 7600, 60603 #### [facility] [place] [address] Vocal Artist: Phoenix Mcmahan MD BUN/CREATININE RATIO SEE NOTE: Normal 6-22 [facility] Comment on above: Result Comment: Not Reported: BUN and Creatinine are within reference range. Performed By: #### 6 399, 496, 7600, 32163 #### [facility] [place] [address] Vocal Artist: Phoenix Mcmahan MD Calcium [Mass/Vol] 9.6 mg/dL Normal 8.6-10.2 [facility] Comment on above: Performed By: #### 6 399, 496, 7600, 29832 #### [facility] [place] [address] Vocal Artist: Phoenix Mcmahan MD Chloride [Moles/Vol] 103 mmol/L Normal 98-110 [facility] Comment on above: Performed By: #### 6 399, 496, 7600, 99560 #### [facility] [place] [address] Vocal Artist: Phoenix Mcmahan MD CO2 [Moles/Vol] 29 mmol/L Normal 20-32 [facility] Comment on above: Performed By: #### 6 399, 496, 7600, 59273 #### [facility] [place] [address] Vocal Artist: Phoenix Mcmahan MD Creatinine [Mass/Vol] 0.66 mg/dL Normal 0.50-0.[address] [facility] Comment on above: Performed By: #### 6 399, 496, 7600, 03914 #### [facility] [place] [address] Vocal Artist: Phoenix Mcmahan MD GFR/1.73 sq M.predicted among non-blacks MDRD (S/P/Bld) [Vol rate/Area] 107 mL/min/{1.73_m2} Normal > OR = 60 [facility] Comment on above: Performed By: #### 6 399, 496, 7600, 60707 #### [facility] [place] [address] Vocal Artist: Phoenix Mcmahan MD Globulin (S) [Mass/Vol] 2.5 g/dL Normal 1.9-3.7 [facility] Comment on above: Performed By: #### 6 399, 496, 7600, 46420 #### [facility] [place] [address] Vocal Artist: Phoenix Mcmahan MD Glucose [Mass/Vol] 102 mg/dL High 65-99 [facility] Comment on above: Result Comment: Fasting reference interval For someone without known diabetes, a glucose value between 100 and 125 mg/dL is consistent with prediabetes and should be confirmed with a follow-up test. Performed By: #### 6 399, 496, 7600, 97987 #### [facility] [place] [address] Vocal Artist: Phoenix Mcmahan MD Potassium [Moles/Vol] 4.5 mmol/L Normal 3.5-5.[address] [facility] Comment on above: Performed By: #### 6 399, 496, 7600, 54316 #### [facility] [address], [address] [place] [address] Vocal Artist: Phoenix Mcmahan MD Protein [Mass/Vol] 7.0 g/dL Normal 6.1-8.1 [facility] Comment on above: Performed By: #### 6 399, 496, 7600, 70638 #### [facility] [address], [address] [place] [address] Vocal Artist: Phoenix Mcmahan MD Sodium [Moles/Vol] 140 mmol/L Normal 135-146 [facility] Comment on above: Performed By: #### 6 399, 496, 7600, 39880 #### [facility] [place] [address] Vocal Artist: Phoenix Mcmahan MD Urea nitrogen [Mass/Vol] 15 mg/dL Normal 7-25 [facility] Comment on above: Performed By: #### 6 399, 496, 7600, 28917 #### [facility] [place] [address] Vocal Artist: Phoenix Mcmahan MD HEMOGLOBIN A1con 12-25-2024 HbA1c (Bld) [Mass fraction] 5.5 % Normal <5.7 [facility] Comment on above: Result Comment: For the purpose of screening for the presence of diabetes: <5.7% Consistent with the absence of diabetes 5.7-6.4% Consistent with increased risk for diabetes (prediabetes) > or =6.5% Consistent with diabetes This assay result is consistent with a decreased risk of diabetes. Currently, no consensus exists regarding use of hemoglobin A1c for diagnosis of diabetes in children. According to [place] [employer] (ADA) guidelines, hemoglobin A1c <7.0% represents optimal control in non- diabetic patients. Different metrics may apply to specific patient populations. Standards of Medical Care in Diabetes(ADA). Performed By: #### 6 399, 496, 7600, 38587 #### [facility] [address], [address] [place] [address] Vocal Artist: Phoenix Mcmahan MD LIPID PANEL, STANDARDon 12-07 Cholesterol [Mass/Vol] 184 mg/dL Normal <200 [facility] Comment on above: Order Comment: FASTI NG:YES FASTING: YES Performed By: #### 6 399, 496, 7600, 59427 #### [facility] [address], [address] [place] [address] Vocal Artist: Phoenix Mcmahan MD Cholesterol in HDL [Mass/Vol] 53 mg/dL Normal > OR = 50 [facility] Comment on above: Order Comment: FASTI NG:YES FASTING: YES Performed By: #### 6 399, 496, 7600, 30469 #### [facility] [address], [address] [place] [address] Vocal Artist: Phoenix Mcmahan MD Cholesterol in LDL [Mass/Vol] 104 mg/dL High [facility] Comment on above: Order Comment: FASTI NG:YES FASTING: YES Result Comment: Refe rence range: <100 Desirable range <100 mg/dL for primary prevention; <70 mg/dL for patients with CHD or diabetic patients with > or = 2 CHD risk factors. LDL-C is now calculated using the Елена calculation, which is a validated novel method providing better accuracy than the Friedewald equation in the estimation of LDL-C. Panchito SS et al. DELL. 2013;310(19): 2967-4423 (http://education.[employer]/faq/FNA565) Performed By: #### 6 399, 496, 7600, 40483 #### [facility] [address], [address] [place] [address] Vocal Artist: Phoenix Mcmahan MD Cholesterol.total/Chol esterol in HDL [Mass ratio] 3.5 {ratio} Normal <5.0 [facility] Comment on above: Order Comment: FASTI NG:YES FASTING: YES Performed By: #### 6 399, 496, 7600, 33187 #### [facility] [place] [address] Vocal Artist: Phoenix Mcmahan MD NON HDL CHOLESTEROL 131 mg/dL (calc) High <130 [facility] Comment on above: Order Comment: FASTI NG:YES FASTING: YES Result Comment: For patients with diabetes plus 1 major ASCVD risk factor, treating to a non-HDL-C goal of <100 mg/dL (LDL-C of <70 mg/dL) is considered a therapeutic option. Performed By: #### 6 399, 496, 7600, 61939 #### [facility] [address], [address] [place] [address] Vocal Artist: Phoenix Mcmahan MD Triglyceride [Mass/Vol] 152 mg/dL High <150 [facility] Comment on above: Order Comment: FASTI NG:YES FASTING: YES Performed By: #### 6 399, 496, 7600, 26348 #### [facility] [address], [address] [place] [address] Vocal Artist: Phoenix Mcmahan MD TSH W/REFLEX TO FT4on 2024 TSH W/REFLEX TO FT4 2.37 mIU/L Normal [facility] Comment on above: Result Comment: Refe rence Range > or = 20 Years 0.40-4.50 Ranges First trimester 0.26-2.66 Second trimester 0.55-2.73 Third trimester 0.43-2.91 Performed By: #### 6 399, 496, 7600, 83418 #### [facility] [address], [address] [place] [address] Vocal Artist: Phoenix Mcmahan MD XR Foot - left 3 [facility] Result: Notable slight irregularity the neck of the left 5th metatarsal with negative periosteal reaction [facility] Study observation (narrative) [facility] XR Foot - left 3 [facility] Result: Negative periosteal reaction noted left 5th metatarsal with negative gross fractures visualized and notable metatarsus adductus [facility] Study observation (narrative) [facility] In office Testingon 09-25-19 In office Testing [id number] #1.00TIFF Normal [facility] In office Testing [id number] #1.00TIFF [facility] Registrationon 09-25-2023 Registration [id number] #1.00TIFF [facility] Consenton 05-30-2023 Consent [id number] 7#1.00TIFF [facility] In office Testingon 05-30-19 24 In office Testing [id number] 3#1.00TIFF [facility] Registrationon 05-30-2023 Registration [id number] 1#1.00TIFF [facility] Progress Note-Physicianon Progress Note-Physician Patient: FIORELLA SNOW Age: 47 years Sex: Female : 1975 Associated Diagnoses: None Author: MD Villalba Ahmad F Postoperative Information Postoperative disposition: Postoperative disposition: To PACU. Optimetrix number: Optimetrix number [id number]. Anesthetic utilized: General. Health Status Allergies: Nonallergic Reactions (Selected) Severity Not Documented Vicodin- Itching. Physical Examination VS/Measurements Pain Assessment: Controlled. General: Awake, Alert, Appropriate. Respiratory: Adequate air exchange. Cardiovascular: Stable, Normal peripheral perfusion. Neurological: Normal sensory function, Normal motor function. Assessment Anesthetic outcome No anesthetic complications noted. Adequate pain relief. able to void without difficulty, able to ambulate with assist, tolerating PO intake, no N/V. Review / Management Condition: Stable. Plan Transfer/Discharge: Transfer/Discharge Discharge when meets criteria ( To home ). [facility] Comment on above: Result Comment: Elec tronically Signed By: MD Villalba Ahmad F\.br\Date and Time Signed: 12/16/22 09:28 EDT Progress Note-Physician Patient: FIORELLA SNOW Age: 47 years Sex: Female : 1975 Associated Diagnoses: None Author: MD Villalba Ahmad F Preoperative Information Time patient last ate or drank:=== (npo 8 hours) Anesthesia history: Patient history: No prior anesthesia problems. Re-evaluation prior to induction: Completed, Initial evaluation reviewed. Review of Systems Respiratory: No shortness of breath. Cardiovascular: No chest pain. Hematology/Lymphatic s: No bruising tendency, No bleeding tendency. Health Status Allergies: Nonallergic Reactions (All) Severity Not Documented Vicodin- Itching. Canceled/Inactive Reactions (All) No Known Allergies Current medications: (Selected) Prescriptions Prescribed Naprosyn 500 mg Tab: 500 mg = 1 tab(s), Oral, BID, # 20 tab(s), Refills(s) 0, Pharmacy: [facility], 165, cm, 03/21/21 7:17:00 EST, Height/Length Dosing, 117, kg, 03/21/21 7:17:00 EST, Weight Dosing [place] 0.65% Nasal [place]: 2 spray(s), Nasal, QID Congestion, 1 EA, Refill(s) 0, [facility], 165, cm, 03/21/21 7:17:00 EST, Height/Length Dosing, 117, kg, 03/21/21 7:17:00 EST, Weight Dosing Percocet 5 mg-325 mg oral tablet: See Instructions, 30 tab(s), Refill(s) 0, Take one to two every 4 hours as needed for knee surgical pain., [facility], 165.1, cm, 11/24/22 8:38:00 EDT, Height/Length Dosing, 139.6, kg, 11/24/22 8:38:00 EDT, Weight Dosing ProAir HFA 90 mcg/inh inhalation aerosol: 2 puff(s), Inhalation, q6hr for wheezing, 1 EA, Refill(s) 1, [facility], 165, cm, 07/19/20 10:07:00 EDT, Height/Length Dosing, 114.5, kg, 07/19/20 10:07:00 EDT, Weight Dosing Xarelto 20 mg oral tablet: 20 mg, Oral, qPM, Start the day after knee surgery for blood clot prevention., X 30 day(s), # 30 tab(s), Refills(s) 0, Pharmacy: [facility], 165.1, cm, 11/24/22 8:38:00 EDT, Height/Length Dosing, 139.6, kg, 11/24/22 8:38:00 EDT, Weight Dosing... cyclobenzaprine 10 mg Tab: See Instructions, PRN for spasm, 1/2 - 1 tab po BID prn, # 30 tab(s), Refills(s) 0, Pharmacy: [facility], 165, cm, 03/21/21 7:17:00 EST, Height/Length Dosing, 117, kg, 03/21/21 7:17:00 EST, Weight Dosing fluticasone 0.05 mg/inh Nasal [place]: 2 spray(s), Nasal, Daily Congestion, 16 gram, Refill(s) 0, each nostril, [facility], 165, cm, 03/21/21 7:17:00 EST, Height/Length Dosing, 117, kg, 03/21/21 7:17:00 EST, Weight Dosing oxybutynin 5 mg ER Tab: 5 mg = 1 tab(s), Oral, Daily, # 30 tab(s), Refills(s) 1, Pharmacy: [facility], 165, cm, 03/21/21 7:17:00 EST, Height/Length Dosing, 117, kg, 03/21/21 7:17:00 EST, Weight Dosing Documented Medications Documented Breztri Aerosphere: 1 puff, Inhalation, BID, Refill(s) 0, Other (see comment) Lasix: 40 mg, Oral, Daily, diuretic/water pill Therapeutic Multiple Vitamins oral tablet: 1 tab(s), Oral, Daily, Prophylaxis cetirizine 10 mg Tab: 10 mg = 1 tab(s), Oral, Daily, Refills(s) 0, Other (see comment) glucosamine 1000 mg oral capsule: one tab, Oral, Daily, Refills(s) 0, Pain pantoprazole: 20 mg, Oral, Daily, Control of stomach acid Problem list: All Problems Fibromyalgia / SNOMED CT 805583112 / Confirmed Generalized anxiety disorder / SNOMED CT 97464896 / Confirmed Fatigue / SNOMED CT 201432296 / Confirmed Chest pain, midsternal / SNOMED CT 180693201 / Confirmed History of COVID-19 / SNOMED CT 8338532358 / Confirmed BMI 40.0-44.9, adult / SNOMED CT 9112659589 / Confirmed Morbid obesity / SNOMED CT 927115910 / Confirmed Generalized headaches / SNOMED CT 335625646 / Confirmed Pelvic pain / SNOMED CT 659242190 / Confirmed Disorder of both eustachian tubes / SNOMED CT 0863981657 / Confirmed History of blood clots / SNOMED CT 448300416 / Confirmed Former smoker / SNOMED CT 51388161 / Confirmed Stress incontinence / SNOMED CT 163450960 / Confirmed Urinary frequency / SNOMED CT 885941584 / Confirmed Urge urinary incontinence / SNOMED CT 437308190 / Confirmed Acid reflux / SNOMED CT 401431895 / Confirmed Tear of meniscus of left knee / SNOMED CT 891272310 / Confirmed Resolved: Arthritis / SNOMED CT 0352608 Resolved: Depression / SNOMED CT 566338762 Resolved: Blood clot / SNOMED CT 171656398 Resolved: Benign neoplasm / SNOMED CT 512475391 left foot Canceled: Smoker / SNOMED CT [id number] Added secondary to documentation in Social History. Canceled: Extreme obesity / SNOMED CT [id number]-Q [id number] Canceled: Tobacco use disorder / SNOMED CT 711355097 Canceled: Class 3 severe obesity due to excess calories in adult / SNOMED CT 9147012586 Canceled: Morbid obesity / SNOMED CT 834476731 Canceled: Smoker / SNOMED CT 778467200 Canceled: RUQ pain / SNOMED CT 753116880 Canceled: Nausea / SNOMED CT 6898908942 Canceled: Bloating / SNOMED CT 901296543 Canceled: Change in bowel habits / SNOMED CT 510904513 Canceled: Otalgia of left ear / SNOMED CT 70229581 (more content not included)... Normal [facility] Comment on above: Result Comment: Elec tronically Signed By: MD Orly, Nirmala Diaz\.br\Date and Time Signed: 12/16/22 09:26 EDT [facility] 0 12-13-2022 [facility] [id number]# 1.00CD:127 [facility] Consent for Anesthesiaon Consent for Anesthesia [id number] 7#1.00CD:127 [facility] Discharge Instructionson Discharge Instructions [id number] 0#1.00CD:127 [facility] IntraOperative Documentson 0 12-12-2022 IntraOperative Documents [id number] 1#1.00CD:127 [facility] Main OR Intraoperative Recor don 12-12-2022 Main OR Intraoperative Record IntraOp Document Type FT Summary Primary Physician: Saad Carolina DO Finalized Date/Time: 12/12/22 12:47:32 Pt. Name: FIORELLA SNOW/Sex: 1975 Female Med Rec #: [id number] Physician: Saad Carolina DO Financial #: [id number] Pt. Type: A Room/Bed: [place] [address] Admit/Disch: 12/11/22 11:32:28 - 12/11/22 17:25:00 Institution: Case Times FT Entry 1 Patient Times In Room 12/11/22 14:39:00 Out Room 12/11/22 15:17:00 Procedure Times Start 12/11/22 14:58:00 Stop 12/11/22 15:11:00 Anesthesia Times Start 12/11/22 14:39:00 Stop 12/11/22 15:17:00 Last Modified By: Adria Avery RN 12/11/22 15:25:04 General Comments: 12/12/22 chart opened for charge review per Jamal Perea RN. [place] Case Attendance FT Entry 1 Entry 2 Entry 3 Case Attendee Bipin BELL, EVANGELINA, [place] Saad Carolina DO, RN, Pooja Espinoza Role Performed BENCH MECHANIC Surgeon - Primary Artist Representative - Primary Time In 12/11/22 14:39:00 12/11/22 14:48:00 12/11/22 14:39:00 Time Out 12/11/22 15:10:00 12/11/22 15:10:00 12/11/22 15:00:00 Procedure KNEE ARTHROSCOPY(Left) KNEE ARTHROSCOPY(Left) KNEE ARTHROSCOPY(Left) Comments Dr. Villalba supervising Last Modified By: Bennie RN, Adria Avery RN, Adria Avery RN, Adria Kraft 12/11/22 15:31:46 12/11/22 15:31:46 12/11/22 15:31:46 Entry 4 Entry 5 Entry 6 Case Attendee Bev Mcdonnell, Carlos Enrique Quintero PET STYLIST, Gina More Role Performed Scrub - Primary Scrub - Primary PET STYLIST/SA Time In 12/11/22 14:39:00 12/11/22 14:39:00 12/11/22 14:39:00 Time Out 12/11/22 15:17:00 12/11/22 15:17:00 12/11/22 15:15:00 Procedure KNEE ARTHROSCOPY(Left) KNEE ARTHROSCOPY(Left) KNEE ARTHROSCOPY(Left) Comments orientation preceptor Last Modified By: Bennie RN, Adria Avery RN, Adria Avery RN, Adria Kraft 12/11/22 15:31:46 12/11/22 15:31:46 12/11/22 15:31:46 Entry 7 Entry 8 Entry 9 Case Attendee Avelina RN, Bronwyn Avery RN, Adria Tijerina BENCH MECHANIC, Maria Fernanda Hernandez Role Performed Staff - Other Artist Representative - Relief BENCH MECHANIC Time In 12/11/22 14:39:00 12/11/22 14:55:00 12/11/22 15:10:00 Time Out 12/11/22 15:17:00 12/11/22 15:17:00 12/11/22 15:17:00 Procedure KNEE ARTHROSCOPY(Left) KNEE ARTHROSCOPY(Left) KNEE ARTHROSCOPY(Left) Comments Last Modified By: Bennie RN, Adria Avery RN, Adria Avery RN, Adria Kraft 12/11/22 15:31:46 12/11/22 15:31:46 12/11/22 15:31:46 Perioperative Protocols FT Pre-Care Text: Implements protective measures prior to operative or invasive procedure, confirms identity before the operative or invasive procedure, verifies operative procedure, surgical site, and laterality Entry 1 Procedure(s) KNEE ARTHROSCOPY(Left) Patient Identity Birthday, ID Band Verified (select at Check, Patient least 2): Participation Consents / H and P Anesthesia Consent, Operative Site Present Verified HandP, Surgery/Procedure Marking Verified Consent Surgical Site Yes Laterality Verified Yes Verified Procedure Verified Yes Correct Patient Yes Position Verified Availability Equipment, Medication Prep Dry Yes Verified (If Applicable) PreOp Antibiotic No Time Out Bipin DNP, BENCH MECHANIC, Queen Eduardo Espinoza, Saad Carolina DO, Gael RIVERA, Sathya Snow Laura C, Carlos Enrique Mckinney, Leon GRIJALVA, Avelina Hirsch RN, Bronwyn Time Out Complete 12/11/22 14:54:00 Outcomes Met? Yes Last Modified By: Adria Avery RN 12/11/22 15:06:54 Post-Care Text: The patient is free from signs and symptoms of injury caused by extraneous objects Allergy Information FT Pre-Care Text: Verifies allergies Entry 1 Allergies Reviewed? Yes Allergies Reviewed Self/Patient With Outcomes Met? Yes Last Modified By: Adria Avery RN 12/11/22 15:07:25 Post-Care Text: The patient received appropriate medication(s) safely administered during the perioperative period Surgical Procedures FT Entry 1 Procedure Description Procedure KNEE ARTHROSCOPY Modifiers Left Surgeon Description LEFT KNEE ARTHROSCOPY PARTIAL MEDIAL MENISCECTOMY CHONDROPLASTY X3 Primary Procedure Yes Primary Surgeon Saad Carolina DO Start 12/11/22 14:58:00 Stop 12/11/22 15:11:00 Anesthesia Type General Surgical Service Orthopedics Wound Class 1 - Clean Last Modified By: Adria Avery RN 12/11/22 15:31:56 General Case Data FT Pre-Care Text: Classifies surgical wound, implements aseptic technique, initiates traffic control Entry 1 Case Information OR OR 4 FT Case Level Level 3 Wound Class 1 - Clean Specialty Orthopedics ASA Class 3 Preop Diagnosis LEFT KNEE MEDIAL Postop Same As Preop Yes MENISCUS TEAR Postop Diagnosis LEFT KNEE MEDIAL Outcomes Met? Yes MENISCUS TEAR Last Modified By: Adria Avery RN 12/11/22 15:41:13 Post-Care Text: The patient is free from signs and symptoms of infection Skin Assessment (Pre Procedure) FT Pre-Care Text: Implements protective measures to prevent skin/ tissue injury due to (more content not included)... Normal [facility] Operative Reporton Operative Report SURGERY DATE: 12/11/2022 PREOPERATIVE DIAGNOSIS: Left knee Workers' Compensation injury with medial meniscal tear, [employer] POSTOPERATIVE DIAGNOSIS: Left knee Workers' Compensation injury with medial meniscal tear, [employer] OPERATION: Left knee arthroscopy with partial medial meniscectomy ANESTHESIA: General TOURNIQUET TIME: See nurse's record ESTIMATED BLOOD LOSS: Zero SPECIMEN: None IMPLANTS: None COMPLICATIONS: None HISTORY OF PRESENT ILLNESS: Fiorella is a 47-year-old female with progressive left knee pain as a result from a fall through work. Please see office notes, History and Physical as well as first report of injury. The site is marked preoperatively. All questions are answered preoperatively. C-9 authorization for diagnosis and procedure have been achieved. All questions were answered. Consent form signed and witnessed. She is aware her weight does compound the perioperative course and morbidity and mortality as well as the potential progression of arthritis. PROCEDURE: Fiorella is taken to the Operating Room and placed in supine position. Anesthesia is provided. The left leg was prepped and draped in sterile fashion with a well-padded tourniquet and bracket to the left upper thigh. Once the time-out was confirmed, the leg was exsanguinated. Tourniquet was inflated. Anterolateral horizontal portal incision was made. The arthroscope entered the knee joint. General inspection showed mild to moderate degenerative change of the central portion of the patella, mild degenerative change of the trochlea. This was pre-existing and not related to the injury pattern. Medial joint was examined which had a mild to moderate size radial tear to the medial meniscus posteriorly. The anterior, posterior roots were stable. Anteromedial portal was established. Of note, she has moderate degenerative change of the medial femoral condyle and medial tibial plateau that is pre-existing. The joint space in general was tight at approximately 5 mm. Utilizing a hook probe, the tear was delineated. Utilizing a basket biter as well as 4.0 shaver partial medial meniscectomy was performed. This component was tied to the Workers' Compensation claim. The arthritis is pre-existing as well as compounding risk factor of obesity. Chondroplasty of note was performed of the medial tibia and femur with a 4.0 shaver. Anterior cruciate ligament, posterior cruciate ligament were intact to inspection and probing without patholaxity or tear. The lateral joint had moderate degenerative change of the lateral tibia. Lateral meniscus was intact. Chondroplasty of the lateral tibia was performed. Both gutters were cleaned and freed. Attention was then directed to the patella. Centrally chondroplasty was performed with a 4.0 shaver. There was no exposed bone throughout the procedure. It was copiously irrigated out after final pictures. All instrumentation was removed. 20 cc of 1% plain lidocaine was injected. Bacitracin, Adaptic, well-padded sterile soft dressing was applied. Tourniquet was deflated. The patient awakened from anesthesia and transferred to the Recovery Room in stable and satisfactory condition. CASE: Clean and elective COUNTS: Sponge and needle count correct SPECIMEN: None CONDITION: The patient's condition satisfactory Saad Carolina D.O. Dictated: 12/11/2022 [id number] Transcribed: 12/12/2022 [facility] Comment on above: Result Comment: Elec tronically Signed By: Saad Carolina DO\.br\Date and Time Signed: 12/12/22 16:58 EDT Preoperative Documentson Preoperative Documents [id number] 5#1.00CD:127 [facility] Consent for Treatmenton Consent for Treatment [id number] #1.00CD:127 [facility] Discharge Instructionson Discharge Instructions FIORELLA SNOW :1975 Visit Date:12/11/2022 Inpatient Discharge Instructions Your Care Team Admitting Physician - Saad Carolina DO Referring Physician - Saad Carolina DO Reason for Your Visit LEFT KNEE MEDIAL MENISCUS TEAR Your Diagnosis Acute medial meniscus tear of left knee Procedure History excision and removal of plantar soft tissue mass, left great toe. skin advancement flap closure, left great toe. (06/30/2014), Anal fissurectomy, Colonoscopy, EGD - Esophagogastroduoden oscopy, Endometrial ablation, grown removed from left eye, Laparoscopy of ovary, Tubal ligation. What to do next Instructions From Your Doctor Event Name Event Result Discharge Instructions Freetext Xarelto 20 mg once a day for 4 weeks for blood clot prevention. Discharge Activity Ambulate as tolerated, Arrange for a responsible adult supervision for 24 hours, Expect mild pain, Do not lift more than 5 lbs Discharge Restrictions No driving, Do not operate machinery or tools, Do not make important decisions for 24 hours, Do not drink alcoholic beverages for 24 hours Discharge Diet(s) Regular, Drink liquids and eat a light meal Call Your Doctor For Persistent or heavy bleeding, Temperature above 101.5 degrees, Redness, swelling, or pus at operative site, Severe pain at the operative site, Persistent vomiting Wound Care Remove dressing as instructed Remove Dressing On 2 Discharge Instructions Discharge Instructions New Follow Up Appointments after Discharge Follow Up with TONI Hadley When: 12/26/2022 10:15 AM EDT Comments: Keep scheduled appointment Where: [address] [place] [address] [facility] (1) Medications What How Much When Why Instructions Next Dose Unchanged acetaminophen-oxycod one (Percocet 5 mg-325 mg oral tablet) See instructions Acute medial meniscus tear of left knee Take one to two every 4 hours as needed for knee surgical pain. Pickup at [facility] Unchanged albuterol (ProAir HFA 90 mcg/ inh inhalation aerosol) 2 Puffs Inhalation Every 6 hours as needed for for wheezing Unchanged budesonide/ formoterol/ glycopyrrolate (Breztri Aerosphere) 1 puff Inhalation 2 times a day Unchanged cetirizine (cetirizine 10 mg Tab) 1 Tablets By Mouth Every day Unchanged cyclobenzaprine (cyclobenzaprine 10 mg Tab) See instructions Acute knee pain 1/ 2 - 1 tab po BID prn Unchanged fluticasone nasal (fluticasone 0.05 mg/ inh Nasal [place]) 2 Sprays Nasal Inhalation Every day as needed for Congestion each nostril Unchanged furosemide (Lasix) 40 Milligram By Mouth Every day Unchanged glucosamine (glucosamine 1000 mg oral capsule) one tab By Mouth Every day Unchanged multivitamin (Therapeutic Multiple Vitamins oral tablet) 1 Tablets By Mouth Every day Unchanged naproxen (Naprosyn 500 mg Tab) 1 Tablets By Mouth 2 times a day Acute knee pain Unchanged oxybutynin (oxybutynin 5 mg ER Tab) 1 Tablets By Mouth Every day Unchanged pantoprazole 20 Milligram By Mouth Every day Unchanged rivaroxaban (Xarelto 20 mg oral tablet) 20 Milligram By Mouth Once a day (in the evening) Duration: 30 Days Start the day after knee surgery for blood clot prevention. Pickup at [facility] Unchanged sodium chloride nasal ([place] 0.65% Nasal [place]) 2 Sprays Nasal Inhalation 4 times a day as needed for Congestion Pharmacy Information [facility]: [address], [place] [id number] [phone] Allergies Vicodin (Itching) Problems Ongoing - Any problem that you are currently receiving treatment for. Acid reflux BMI 40.0-44.9, adult Chest pain, midsternal Disorder of both eustachian tubes Fatigue Former smoker Generalized anxiety disorder Generalized headaches History of blood clots History of COVID-19 Morbid obesity Pelvic pain Stress incontinence Tear of meniscus of left knee Urge urinary incontinence Urinary frequency Historical - Any problem that you are no longer receiving treatment for. Arthritis Benign neoplasm Blood clot Depression Education Materials [place], [place] [facility] DISCHARGE INSTRUCTIONS: KNEE ARTHROSCOPY Diet Begin with a liquid diet and advance to your normal diet as tolerated. Activity You may gradually increase your activity as tolerated. Until your first post-operative visit elevate your knee higher than your heart, whenever you are sitting or lying down. Knee swelling will gradually decrease after surgery. Increased swelling is usually a sign of over-activity and should be a signal for you to be less active and apply ice as needed. Your exercise program is the patterson to successful rehabilitation of your knee. Do the exercises daily as instructed. You will receive further exercises at your next visit as needed. The possible need for Physical Therapy wi (more content not included)... Normal [facility] Comment on above: Result Comment: Elec tronically Signed By: Rin RIVERA, Risa Starkey\.br\Date and Time Signed: 12/11/22 16:23 EDT H&P Updateon 12-11-2022 H&P Update [id number] 4#1.00CD:127 Normal [facility] Main OR PACU I [facility] Main OR PACU I Record PACU Phase I Document Type FT Summary Primary Physician: Saad Carolina DO Finalized Date/Time: 12/11/22 16:35:05 Pt. Name: FIORELLA SNOW/Sex: 1975 Female Med Rec #: [id number] Physician: Saad Carolina DO Financial #: [id number] Pt. Type: A Room/Bed: [facility] Admit/Disch: 12/11/22 11:32:28 - Institution: Case Times PACU I FT Pre-Care Text: Identifies barriers to communication and implements measures to provide psychological support Develops individualized plan of care, and ensures continuity of care Maintains patient's dignity and privacy, and maintains patient confidentiality Identifies and reports philosophical, cultural, and spiritual beliefs and values Identifies individual values and wishes concerning care Implements aseptic technique, and administers prescribed antibiotic therapy and immunizing agents as ordered Evaluates postoperative tissue perfusion Implements thermoregulation measures, and monitors body temperature Evaluates postoperative respiratory status Evaluates postoperative cardiac status Evaluates postoperative neurological status Assesses pain control, collaborated in initiating patient-controlled analgesia and implements alternative methods of pain control Verifies allergies, administers prescribed medications and solutions, evaluates response to medications Entry 1 In PACU I 12/11/22 15:18:00 Discharge from PACU 12/11/22 16:08:00 I Outcomes Met? Yes Last Modified By: Jonathan RIVERA, Charline Arevalo 12/11/22 16:34:53 Post-Care Text: The patient demonstrates knowledge of the expected response to the operative or invasive procedure The patient's care is consistent with the individualized perioperative plan of care The patient's right to privacy is maintained The patient's value system, lifestyle, ethnicity, and culture are considered, respected, and incorporated into the perioperative plan of care The patient participates in decisions affecting his or her perioperative plan of care The patient is free from signs and symptoms of infection The patient has wound/tissue perfusion consistent with or improved from baseline levels established preoperatively The patient is at or returning to normothermia at the conclusion of the immediate postoperative period The patient's respiratory function is consistent with or improved from baseline levels established preoperatively The patient's cardiovascular status is consistent with or improved from baseline levels established preoperatively The patient's cardiovascular status is consistent with or improved from baseline levels established preoperatively The patient demonstrates and/or reports adequate pain control throughout the perioperative period The patient received appropriate medication(s), safely administered during the perioperative period Acuity Level PACU I FT Entry 1 Start Time 12/11/22 15:18:00 Stop Time 12/11/22 16:08:00 Acuity Level Acuity Level I Last Modified By: Charline Castillo RN 12/11/22 16:35:02 Finalized By: Charline Castillo RN Document Signatures Signed By: Charline Castillo RN 12/11/22 16:35 [facility] Main OR Preoperative Recordo n 12-11-2022 Main OR Preoperative Record PreOp Document Type FT Summary Primary Physician: Saad Carolina DO Finalized Date/Time: 12/11/22 15:07:16 Pt. Name: FIORELLA SNOW/Sex: 1975 Female Med Rec #: [id number] Physician: Saad Carolina DO Financial #: [id number] Pt. Type: A Room/Bed: [place] [address] Admit/Disch: 12/11/22 11:32:28 - Institution: Case Times PreOp FT Pre-Care Text: Verifies consent for planned procedure, identifies individual values and wishes concerning care, includes family members in perioperative teaching Entry 1 Patient Times. In Pre Surgery 12/11/22 11:40:00 Out Pre Surgery 12/11/22 14:37:00 Outcomes Met? Yes Last Modified By: Adria Avery RN 12/11/22 15:07:15 Post-Care Text: The patient participates in decisions affecting his or her perioperative plan of care Finalized By: Adria Avery RN Document Signatures Signed By: Adria Avery RN 12/11/22 15:07 Normal [facility] Monitor [place] 12-11-2022 Monitor Record [id number] 3#1.00CD:127 Normal [facility] Monitor Record [id number] 3#1.00CD:127 Normal [facility] Patient Education - Texton 0 12-11-2022 Patient Education - Text [place], [place] [facility] DISCHARGE INSTRUCTIONS: KNEE ARTHROSCOPY Diet Begin with a liquid diet and advance to your normal diet as tolerated. Activity You may gradually increase your activity as tolerated. Until your first post-operative visit elevate your knee higher than your heart, whenever you are sitting or lying down. Knee swelling will gradually decrease after surgery. Increased swelling is usually a sign of over-activity and should be a signal for you to be less active and apply ice as needed. Your exercise program is the patterson to successful rehabilitation of your knee. Do the exercises daily as instructed. You will receive further exercises at your next visit as needed. The possible need for Physical Therapy will then be discussed. You may bear weight on your operative leg, use your crutches or walker for walking until you can lift 5 pounds with a straight leg raise on the affected side. This is important for protection of your knee after surgery. Although you will find that you can walk without crutches or walker, it is not healthy for you until you regain adequate muscle strength. Use your crutches or walker until your limp is gone. Xarelto 20mg once a day for 4 weeks for blood clot prevention. You are encouraged to bend your knee as this is comfortably tolerated. Do not forcefully bend until you have permission by your surgeon. Driving is legal, but if you are involved in an accident, you must be able to prove that you maintained full control of your vehicle. For this reason, it is advised that you do not drive until your strength returns, generally in 1-2 weeks. Similarly, all sports activities are discouraged, at least until your first post-operative visit at which time we will discuss how and when to resume sports. Increased Pain Usually this is the result of over-activity and should respond well to rest, ice and elevation. If this does not provide relief, take the pain medication as directed but do not return to activity. If severe pain persists despite rest, elevation and medication, contact your surgeon. You will be given a prescription for pain medication when you leave the hospital. Please inform us of any known drug allergy. If you have any problems with the medication, it should be discontinued and our office notified. The sensation of splashing of fluid inside the knee is not cause for concern. It represents residual fluids from surgery and they will be absorbed generally in the first few days. Elevation of the leg and application of an ice pack to the knee will minimize swelling and discomfort in the first 48 hours after surgery. Incisions The portals of entry may be sore and develop bruising over the next several days. The bruising eventually resolves and does not require any special care. There may be some numbness around the portals that can take several days or several weeks to resolve as the swelling subsides. Do not apply creams or lotions to your knee. Your portals will heal best if kept dry. [facility] Discharge Instructs for Knee Arthroscopy Page 2 Dressing A soft compression dressing has been applied to your knee. This dressing should be comfortable and absorb any leakage of fluid after surgery. Although the dressing may become moist or blood stained, this is not usually a cause for concern. If this persists beyond 2-3 days, notify your surgeon. You may remove the dressing two days after your surgery. You may possibly have tape strips or sutures under the dressing. Do not remove these if present. Apply bandaids to the operative sites and keep these clean until your first post-operative visit. Apply betadine and band-aids to the puncture wounds in the morning (and again in the evening as needed) on a daily basis. Bathing You may shower after surgery. Bathing or soaking in water should be avoided until your first post-operative visit. Keep incisions dry until healed over. Precautions If you develop fever (101 degrees or above), increasing pain (not relieved by rest, elevation, ice and medication as prescribed), redness or persistent swelling in your calves or feet that doesn't respond to elevation, please contact the office or the hospital. If you notice increasing drainage from the operative portals after the first few days, this should also be reported. Return Visit Your post-operative follow-up appointment is generally between 10 and 14 days after surgery and you will be given an appointment card. Do not hesitate to call the office or the hospital if any problems or questions arise before your appointment. Saad Carolina, DO [facility] [address] [place], [place] [address] Reviewed: 07-13 Normal [facility] Workers' Comp Officeon 12-05 Workers' Comp Office [id number] #1.00CD:127 Normal [facility] Consent for Procedure/Surger yon 12-04-2022 Consent for Procedure/Surgery [id number] #1.00CD:127 Normal [facility] BUNon 11-22-2022 Urea nitrogen [Mass/Vol] 16 mg/dL Normal - [facility] Comment on above: Performed By: #### 1 [id number], [id number] ####[facility] [id number] [place] [address] CBC w/Indiceson 11-22-2022 Erythrocyte distribution width (RBC) [Ratio] 13.4 % Normal 10.9-14.2 [facility] Comment on above: Performed By: #### 1 [id number], [id number] ####[facility] [id number] [place] [address] Hematocrit (Bld) [Volume fraction] 40.6 % Normal 34.0-46.0 [facility] Comment on above: Performed By: #### 1 [id number], 3640819, 1953246, 1467052, 0042222, 7122982 ####[facility] [address] [place] [address] Hemoglobin (Bld) [Mass/Vol] 13.8 g/dL Normal 12.0-16.0 [facility] Comment on above: Performed By: #### 1 [id number], 4600778, 8130149, 0041601, 6372001, 4926689 ####[facility] [address] [place] [address] MCH (RBC) [Entitic mass] 31.7 pg Normal 27.0-34.0 [facility] Comment on above: Performed By: #### 1 3854742, 0800619, 5768232, 7408421, 6045070, 8440636 ####[address] [place] [address] MCHC (RBC) [Mass/Vol] 33.9 g/dL Normal 31.4-36.0 [facility] Comment on above: Performed By: #### 1 [id number], 9574548, 3720566, 8421056, 2230764, 6218064 ####[address] [place] [id number] MCV (RBC) [Entitic vol] 93.6 fL Normal 80.0-100.0 [facility] Comment on above: Performed By: #### 1 [id number], 7562623, 3406500, 3021357, 8305395, 7395382 ####[id number] Platelet mean volume (Bld) [Entitic vol] 8.6 fL Normal 6.4-10.8 [facility] Comment on above: Performed By: #### 1 5543792, 3434532, 2396472, 3537020, 7426110, 7033435 ####[address] [address] Platelets (Bld) [#/Vol] 286.0 E9/L Normal 150.0-500.0 [facility] Comment on above: Performed By: #### 1 7218025, 1950172, 7865632, 0897251, 9306078, 3939113 ####[address] [place] [address] RBC (Bld) [#/Vol] 4.3 E12/L Normal 4.3-5.9 [facility] Comment on above: Performed By: #### 1 4768578, 2191926, 1170384, 3838650, 6818171, 7380902 ####[address] [place] [address] WBC corrected for nucl RBC Auto (Bld) [#/Vol] 10.3 E9/L Normal 4.0-11.0 [facility] Comment on above: Performed By: #### 1 6667149, 2865658, 9448668, 5089528, 1721363, 2708237 ####[facility] [address] [place] [address] CHEMISTRYOrdered By: SYSTEM SYSTEM on 11-22-2022 Anion gap [Moles/Vol] 11 mmol/L Normal 6 - 16 mEq/L [facility] Remisol Chloride [Moles/Vol] 103 mmol/L Normal 101 - 1 11 mmol/L [facility] Remisol CO2 [Moles/Vol] 29 mmol/L Normal 21 - 31 mmol/L [facility] Remisol Creatinine [Mass/Vol] 0.8 mg/dL Normal 0.5 - 1.3 mg/dL [facility] Remisol GFR/1.73 sq M.predicted among non-blacks MDRD (S/P/Bld) [Vol rate/Area] 91 mL/min/1.73 m2 Normal >=59mL/min/1. 73 m2 [facility] Chem S Glucose [Mass/Vol] 92 mg/dL Normal 55 - 199 mg/dL [facility] Remisol Potassium [Moles/Vol] 3.9 mmol/L Normal 3.5 - 5.3 mmol/L [facility] Remisol Sodium [Moles/Vol] 139 mmol/L Normal 135 - 145 mmol/L [facility] Remisol Urea nitrogen [Mass/Vol] 16 mg/dL Normal 5 - 21 mg/dL [facility] Remisol Consent for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 obesity (CMS/ HCC) Start: 09-25-2023 End: 09-25-2023 ambulatory Crescencio Brant ERNST [facility] Start: 05-30-2023 End: 05-30-2023 ambulatory [facility] Facility:[facility] Start: 05-14-2023 Telephone encounter Akash culver PA Work Phone: [facility] Start: 05-09-2023 Chart abstracting Akash rod PA Work Phone: [facility] Start: 05-09-2023 End: 05-09-2023 Office outpatient visit 25 minutes Akash Crooks PA Work Phone: [facility] Comment on above: Intractable right he el pain (Primary Dx); Primary hypertension (CMS/HCC); Bilateral lower extremity edema; Morbid obesity (CMS/HCC); Weight gain Start: 12-11-2022 End: 12-11-2022 ambulatory Saad Carolina Facility:[facility] Start: 11-22-2022 End: 11-22-2022 ambulatory Saad Carolina Facility:[facility] Start: 11-22-2022 End: 11-22-2022 Patient encounter procedure Saad Carolina [facility] Start: 11-14-2022 End: 11-23-2022 Pre-admission assessment Saad Carolina [facility] Start: 10-10-2022 End: 10-10-2022 ambulatory Crescencio DUKES Facility:[facility] Start: 10-10-2022 End: 10-10-2022 Patient encounter procedure Crescencio DUKES [facility] Start: 05-29-2022 End: 05-29-2022 Patient encounter procedure Nikki MUHAMMAD [facility] Start: 09-21-2021 End: 09-21-2021 Emergency department patient visit Sade Cirilo [facility] Procedures Date Procedure Procedure Detail Performing Clinician Start: 07-29-2024 Radex foot complete minimum 3 views Roque Aiken DPM Work Phone: Start: 07-15-2024 Radex foot complete minimum 3 views Roque Aiken DPM Work Phone: Start: 08-18-2023 Microscopic observation [Identifier] in Cervix by Cyto stain Petrona Perdomo MD Work Phone: Start: 02-06-2022 Mammography Akash BRYAN Work Phone: Start: 06-30-2014 excision and removal of plantar soft tissue mass, left great toe. skin advancement flap closure, left great toe. Nikki MUHAMMAD Anal fissurectomy Nikki OSORIO Colonoscopy Saad Ge Diagnostic endoscopi c examination of ovary Nikki MUHAMMAD Comment on above: cyst Endometrial ablation Nikki MUHAMMAD Esophagogastroduodenoscopy Lita Carolina grown removed from left eye Nikki MUHAMMAD Ligation of fallopian tube Pollo MUHAMMAD Plan of Treatment Date Care Activity Detail Author Start: 08-17-2026 Screening for malign ant neoplasm of cervix [facility] Start: 03-11-2026 Screening for malign ant neoplasm of colon [facility] Start: 12-24-2024 End: 12-24-2025 URINALYSIS, COMPLETE W/REFLEX TO CULTURE URINALYSIS, COMPLETE W/REFLEX TO CULTURE Lab Routine Primary hypertension Leukocytes in urine Expected: 12/24/2024 (Approximate), Expires: 12/24/2025 [facility] Comment on above: Expected: 12/24/2024 (Approximate), Expires: 12/24/2025 Start: 12-24-2024 End: 12-24-2026 US Heart Transthoracic Transthoracic Echo (TTE) Complete Echocardiography Routine Primary hypertension Bilateral lower extremity edema Weight gain Chronic fatigue Severe obstructive sleep apnea Chest tightness ZHENG (dyspnea on exertion) Expected: 12/24/2024 (Approximate), Expires: 12/24/2026 [facility] Comment on above: Expected: 12/24/2024 (Approximate), Expires: 12/24/2026 Start: 12-06-2024 Influenza vaccination [facility] Start: 07-29-2024 End: 07-29-2024 Patient encounter procedure 07/29/2024 3:50 PM EDT Office Visit [facility] [address] [address] Roque Aiken, DPLita [address] [facility] [address] [place] [address] Stress fracture, left foot, initial encounter for fracture (Primary Dx) [facility] Comment on above: Stress fracture, lef t foot, initial encounter for fracture (Primary Dx) Start: 07-15-2024 End: 07-15-2024 Patient encounter procedure 07/15/2024 3:10 PM EDT Office Visit [facility] [address] [facility] [address] [place] [address] Roque Aiken, STANISLAW [address] [facility] [address] [place] [address] Bilateral foot pain [facility] Comment on above: Bilateral foot pain Start: 03-01-2024 Screening for malign ant neoplasm of breast Mammogram [facility] Comment on above: Postponed from 02/06 (Other Patient Reasons) Start: 01-23-2024 End: 01-23-2024 Patient encounter procedure [facility] Comment on above: Arrived Start: 01-09-2024 End: 01-09-2024 Patient encounter procedure 01/09/2024 9:30 AM EDT Office Visit [facility] [address] [facility] [address] [place] [address] Akash Crooks PA [address] [facility] [address] [place] [address] [facility] Start: 12-07-2023 Influenza vaccination Influenza Vacc ine (#1) [facility] Start: 10-05-2023 Influenza vaccination Influenza Vacc ine (#1) [facility] Comment on above: Postponed from 12/06 (Patient Refused) Start: 06-06-2023 End: 06-06-2023 Patient encounter procedure 06/06/2023 9:00 AM EST Office Visit [facility] [address] [facility] [address] [place] [address] Akash Crooks PA 112 [facility] [address] [place] [address] [facility] Start: 05-09-2023 End: 05-09-2024 XR Calcaneus - right 2 Views XR calcaneus 2 views right Imaging Routine Intractable right heel pain Expected: 05/09/2023, Expires: 05/09/2024 [facility] Work Phone: Comment on above: Expected: 05/09/2023 , Expires: 05/09/2024 Start: 05-09-2023 End: 05-09-2023 Patient encounter procedure 05/09/2023 9:30 AM EST Office Visit [facility] [address] [facility] [address] [place] [address] Akash Crooks PA [address] [facility] [address] [place] [address] [facility] Start: 02-06-2023 Screening for malign ant neoplasm of breast Mammogram [facility] Start: 11-19-2005 Screening for malign ant neoplasm of cervix [facility] Start: 11-19-1996 Screening for malign ant neoplasm of cervix Pap Smear [facility] Start: 1975 Screening for malign ant neoplasm of colon [facility] CBC W Auto Different ial panel - Blood CBC and differential Lab Routine Wellness examination Primary hypertension Bilateral lower extremity edema Ordered: 12/24/2024 [facility] Work Phone: Comment on above: Ordered: 12/24/2024 Comprehensive metabo lic 2000 panel - Serum or Plasma Comprehensive metabolic panel Lab Routine Wellness examination Primary hypertension Hyperinsulinemia Bilateral lower extremity edema Ordered: 12/24/2024 [facility] Comment on above: Ordered: 12/24/2024 Hemoglobin A1c/Hemoglobin.total in Blood Hemoglobin A1c Lab Routine Wellness examination Hyperinsulinemia Ordered: 12/24/2024 [facility] Comment on above: Ordered: 12/24/2024 Lipid 1996 panel - Serum or Plasma Lipid panel Lab Routine Wellness examination Primary hypertension Ordered: 12/24/2024 [facility] Comment on above: Ordered: 12/24/2024 TSH W/REFLEX TO FT4 TSH W/REFLEX TO FT4 Lab Routine Wellness examination Weight gain Ordered: 12/24/2024 [facility] Comment on above: Ordered: 12/24/2024 Payers Date Payer Category Payer Self-pay 2023 [facility] BCBS [id number] 2023 Unknown [id number] 2022 Private Health Insurance [id number] 2022 Worker's Compensation [id number] 2022 Unknown [id number] 2022 Worker's Compensation [id number] 2022 Unknown 2022 Worker's Compensation JOSE [place] ember [id number] 2022 Private Health Insurance [facility] [id number] 2022-Present [address] [address] [place] [address] [id number] 1975 Unknown [id number] .727 1975 Unknown [id number] [id number] .727 1975 Unknown [id number] 2.16.840.1.184878.3.579.2 .727 1975 Unknown [id number] [id number] .727 1975 Unknown [id number] 2.16.840.1.050440.3.579.2 .9 1975 Unknown [id number] 2.16.840.1.789893.3.579.2 .1259 1975 Unknown [id number] 2.16.840.1.240348.3.579.2 .1258 1975 Unknown [id number] 2.16.840.1.002757.3.579.2 .125 1975 Unknown [id number] 2.16.840.1.235979.3.579.2 .1258 1975 Unknown [id number] 2.16.840.1.975049.3.579.2 .1258 1975 Unknown [id number] 2.16.840.1.553947.3.579.2 .1258 1975 Unknown [id number] 2.16.840.1.767395.3.579.2 .1258 1975 Unknown [id number] 2.16.840.1.464277.3.579.2 .1258 1975 Unknown [id number] 2.16.840.1.920468.3.579.2 .9 1975 Unknown [id number] 2.16.840.1.541579.3.579.2 .1258 1975 Unknown [id number] 2.16.840.1.408997.3.579.2 .1258 1975 Unknown [id number] 2.16.840.1.433000.3.579.2 .1258 1975 Unknown [id number] .1259 Social History Date Type Detail Facility [facility] Tobacco smoking consumption unknown [facility] Start: 03-21-2021 End: 08-29-2022 Tobacco smoking status Ex-smoker (finding) [facility] Comment on above: quit smoking 2020 Tobacco smoking status Never [facility] Start: 10-07-2022 End: 12-24-2024 Sex Assigned At Female [facility] History of tobacco use Current smoker [facility] History of tobacco use Cigarette Smoker [facility] Start: 08-29-2022 Tobacco use and exposure Smokeless tobacco non-user [facility] Start: 05-05-2023 End: 12-24-2024 Alcohol intake Ex-drinker (finding) [facility] Start: 10-07-2022 End: 12-24-2024 History of Social function [facility] Within the last year , have you been afraid of your partner or ex-partner? No [facility] Are you now , , , , never or living with a partner? [facility] How often to you hav e a drink containing alcohol? Never [facility] How hard is it for y ou to pay for the very basics like food, housing, medical care, and heating Somewhat hard [facility] Do you feel stress - tense, restless, nervous, or anxious, or unable to sleep at night because your mind is troubled all the time - these days [OSQ] Not at all [facility] (I/We) worried wheth er (my/our) food would run out before (I/we) got money to buy more. Never true [facility] Start: 11-24-2022 Alcohol Comment Caffeine intak e: 1-2 cups per day [facility] Start: 1975 Sex Assigned At Female [facility] Start: 08-31-2022 Gender identity Identifies as female gender (finding) [facility] Start: 10-07-2022 Sexual orientation Heterosexual (fin ding) [facility] Functional Status Date Assessment Result Facility 12-24-2024 Patient Health Quest ionnaire 2 item (PHQ-2) [Reported] [facility] 11-22-2022 Functional Status No [facility] Clinical Notes 12-04-2022 to 12-24-2024 RANDI Ball - 12/24/2024 10:30 AM EDTTelephone Encounter - Roque Aiken DPM - 07/15/2024 3:19 PM EDTTelephone Encounter - Roque Aiken, DPM - 07/15/2024 3:19 PM EDT Note Date & Type Note Facility 12-24-2024 History of Present illness Narrative Images from the original note were not included. Subjective Patient ID: Fiorella Snow is a 49 y.o. female who presents for Annual Exam. Pt is here for a annual visit Pt would like to restart adipex Pt is refusing mammogram Working long days, up to 14 hours, sometimes 4 am to 7 pm. Works 5 days a week. Sometimes she feels like it is hard to breath, like in her throat. Feels like something is caught. Not depressed, just frustrated with her weight. Tried GLP-1 medication for three months without improvement. States only eats once a day. Has tried to eat healthy snacks throughout the day and that did not help. States does not know what else to do. Doesn't have time to exercise. Will be following with dentist to try to get a new set of dentures. Putting collagen powder in her coffee which has helped her joints, so is using less Ibuprofen. Using the Albuterol inhaler multiple times a day. Working in a very jody environment and that is aggravating her breathing. Was on Breztri in the past and it worked well for her. Having a lot of shortness of breath, even with walking. Over the past 2 weeks, how often have you been bothered by any of the following problems? Little interest or pleasure in doing things: Not at all Feeling down, depressed, or hopeless: Not at all Patient Health Questionnaire-2 Score: 0 Current Outpatient Medications on File Prior to Visit Medication Sig Dispense Refill albuterol HFA 90 mcg/act inhaler Inhale 2 puffs every 6 (six) hours if needed for wheezing or shortness of breath 18 g 5 cetirizine (ZyrTEC) 10 MG tablet Take 10 mg by mouth in the morning. cyclobenzaprine (Flexeril) 10 MG tablet Take 1 tablet (10 mg) by mouth 3 (three) times a day as needed for muscle spasms 90 tablet 2 ibuprofen 800 MG tablet Take 1 tablet (800 mg) by mouth every 8 (eight) hours if needed for mild pain 100 tablet 3 lisinopril 10 MG tablet Take 1 tablet (10 mg) by mouth Daily 100 tablet 3 MAGNESIUM CITRATE PO Take 400 mg by mouth Daily metoprolol succinate XL (Toprol-XL) 25 MG 24 hr tablet TAKE 1 TABLET BY MOUTH EVERY DAY *DO NOT CRUSH OR CHEW* 100 tablet 3 Multiple Vitamin (MULTIVITAMIN ADULT PO) Take 1 tablet by mouth Daily Probiotic Product (PROBIOTIC PO) Take 1 capsule by mouth Daily [DISCONTINUED] methylPREDNISolone (Medrol Dospak) 4 MG tablets Follow schedule on MEDROL PACK package instructions to be used as directed 21 tablet 0 [DISCONTINUED] Misc Natural Products (BEET ROOT PO) Take 1 tablet by mouth Daily [place] Beets Supplement No current facility-administered medications on file prior to visit. I have reviewed and reconciled the history and medication list with the patient today. Allergies Allergen Reactions Hydrocodone-Acetaminophen Rash Social History Tobacco Use Smoking status: Former Types: Cigarettes Smokeless tobacco: Never Vaping Use Vaping status: Never Used Substance Use Topics Alcohol use: Not Currently Comment: Caffeine intake: 1-2 cups per day Drug use: Never Family History Problem Relation Name Age of Onset Ovarian cancer Mother Endometriosis Mother Lymphoma Mother Fibromyalgia Mother Uterine cancer Mother Diabetes Father Heart failure Father Hypertension Father Hyperlipidemia Father Kidney disease Father Thyroid disease Sister No Known Problems Daughter No Known Problems Son Endometriosis Sibling Past Medical History: Diagnosis Date GERD (gastroesophageal reflux disease) Skin condition resolved Past Surgical History: Procedure Laterality Date KNEE ARTHROSCOPY W/ DEBRIDEMENT Left 12/11/2022 [facility] LAPAROTOMY OVARIAN CYSTECTOMY OTHER SURGICAL HISTORY Cyro-Ablation TUBAL LIGATION Bilateral VAGINAL DELIVERY x2 Visit Vitals BP 118/72 Pulse 75 Ht 5' 5 Wt 349 lb SpO2 95% BMI 58.08 kg/m OB Status Having periods Smoking Status Former BSA 2.69 m Review of Systems Constitutional: Positive for unexpected weight change (Gain). Negative for chills, fatigue and fever. HENT: Negative for congestion, ear pain, rhinorrhea and sore throat. Eyes: Negative for pain, discharge and visual disturbance. Respiratory: Positive for shortness of breath (With exertion). Negative for cough and wheezing. Cardiovascular: Positive for leg swelling. Negative for chest pain and palpitations. Gastrointestinal: Negative for abdominal pain, constipation, diarrhea, nausea and vomiting. Genitourinary: Negative for difficulty urinating, dysuria and frequency. Musculoskeletal: Positive for arthralgias. Negative for back pain. Skin: Negative for rash. Neurological: Negative for dizziness and numbness. Psychiatric/Behavioral: Negative for sleep disturbance. The patient is not nervous/anxious. Objective Physical Exam Constitutional: General: She is not in acute distress. Appearance: She is well-developed. She is obese. HENT: Head: Normocephalic and atraumatic. Right Ear: Tympanic membrane and ear canal normal. Left Ear: Tympanic membrane and ear canal normal. Nose: Nose normal. Mouth/Throat: Mouth: Mucous membranes are moist. Pharynx: No posterior oropharyngeal erythema. Eyes: General: No scleral icterus. Extraocular Movements: Extraocular movements intact. Conjunctiva/sclera: Conjunctivae normal. Pupils: Pupils are equal, round, and reactive to light. Cardiovascular: Rate and Rhythm: Normal rate and regular rhythm. Heart sounds: Normal heart sounds. No murmur heard. Pulmonary: Effort: Pulmonary effort is normal. No respiratory distress. Breath sounds: Normal breath sounds. No wheezing, rhonchi or rales. Abdominal: General: Bowel sounds are normal. There is no distension. Palpations: Abdomen is soft. Tenderness: There is no abdominal tenderness. There is no guarding. Musculoskeletal: General: No deformity. Normal range of motion. Cervical back: Normal range of motion and neck supple. No tenderness. Right lower leg: Edema present. Left lower leg: Edema present. Skin: General: Skin is warm and dry. Capillary Refill: Capillary refill takes less than 2 seconds. Findings: No rash. Neurological: General: No focal deficit present. Mental Status: She is alert and oriented to person, place, and time. Cranial Nerves: No cranial nerve deficit. Sensory: No sensory deficit. Motor: No weakness. Gait: Gait normal. Deep Tendon Reflexes: Reflexes normal. Psychiatric: Mood and Affect: Affect is tearful (Due to frustration with weight gain). Behavior: Behavior normal. Thought Content: Thought content normal. Judgment: Judgment normal. Assessment/Plan Diagnoses and all orders for this visit: Wellness examination - CBC and differential - Comprehensive metabolic panel - Hemoglobin A1c - Lipid panel - TSH W/REFLEX TO FT4 Wellness form reviewed in detail with the patient. Encouraged patient to stay up to date on immunizations and preventative testing. Encouraged healthy diet, stay active. Will continue with yearly wellness exams. Primary hypertension - CBC and differential - Comprehensive metabolic panel - Lipid panel - URINALYSIS, COMPLETE W/REFLEX TO CULTURE; Future - Transthoracic Echo (TTE) Complete; Future Patient's blood pressure is currently well controlled. Continue with current medications and I will continue to monitor. Goal BP remains less than 130/80. Hyperinsulinemia - Comprehensive metabolic panel - Hemoglobin A1c Will recheck A1c with today's labs. Bilateral lower extremity edema - CBC and differential - Comprehensive metabolic panel - Transthoracic Echo (TTE) Complete; Future Has noted an increase in leg swelling. Will obtain labs and ECHO for further evaluation. Morbid obesity ([facility]) - phentermine (Adipex-P) 37.5 MG tablet; Take 1 tablet (37.5 mg) by mouth in the morning. Take before meals. Patient can restart Adipex once daily. Advised patient of possible side effects. Patient is to stop the medication and call me if pt experiences any syncope or SOB. Will need to see the patient in 30 days and document a significant weight loss in order to continue the medication. The patient is to exercise regularly and work on diet modification, encouraged portion control. Lifestyle modifications must be continued in order to maintain weight loss. Patient voiced understanding. Weight gain - TSH W/REFLEX TO FT4 - Transthoracic Echo (TTE) Complete; Future Pt has gained 29 pounds since her last appointment. Will recheck TSH with today's labs. Pt declined referral to Dietitian due to potential cost of referral. Leukocytes in urine - URINALYSIS, COMPLETE W/REFLEX TO CULTURE; Future Was told at her DOT physical that she has WBC in her urine and to have it rechecked. UA ordered today. Adenomyosis Pt has not yet scheduled an appt with [facility]. Encouraged her to do so. Chronic fatigue - Transthoracic Echo (TTE) Complete; Future Likely multifactorial. Will obtain ECHO for further evaluation to r/o LVH or valvular disease. Chronic GERD This is a chronic medical condition that is stable since last assessment. 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 Severe obstructive sleep apnea - Transthoracic Echo (TTE) Complete; Future Patient is compliant with CPAP usage and perceives benefit from treatment. Treatment has been effective in controlling the patient's symptoms of Sleep Apnea. Will continue to monitor with routine follow up appointments. Chest tightness - Transthoracic Echo (TTE) Complete; Future Will obtain ECHO for further evaluation to r/o LVH or valvular disease. Fibromyalgia This is a chronic medical condition that is stable since last assessment. Former smoker The patient was counseled on the importance of maintaining cigarette smoking abstinence. The patient continues to refrain from smoking and is committed to avoiding tobacco use. Generalized headaches This is a chronic medical condition that is stable since last assessment. History of blood clots This is a chronic medical condition that is stable since last assessment. History of COVID-19 This is a chronic medical condition that is stable since last assessment. Stress incontinence This is a chronic medical condition that is stable since last assessment. Urge urinary incontinence This is a chronic medical condition that is stable since last assessment. Generalized anxiety disorder This is a chronic medical condition that is stable since last assessment. Moderate persistent asthma without complication (HCC) - Mkjridd-Cvqhljpmdzy-Yegkismskz (HuStreamztri Aerosphere) 160-9-4.8 MCG/ACT aerosol; Inhale 2 puffs in the morning and 2 puffs before bedtime. Pt using the Albuterol multiple times a day. Needs to restart a maintenance inhaler. S/P left knee arthroscopy Can follow up with Ortho as needed. Left anterior knee pain Can follow up with Ortho as needed. Pelvic pain Pt has not yet scheduled an appt with [facility]. Encouraged her to do so. ZHENG (dyspnea on exertion) - Transthoracic Echo (TTE) Complete; Future Will obtain ECHO for further evaluation to r/o LVH or valvular disease. Follow up in about 4 weeks (around 01/21/2025) for Medication Follow Up. documented in this encounter [facility] 07-15-2024 Telephone encounter Note Please precertify for custom orthotics for the diagnosis of metatarsal deformity [facility] 07-15-2024 Miscellaneous Notes Please precertify for custom orthotics for the diagnosis of metatarsal deformity documented in this encounter [facility] 07-15-2024 History of Present illness Narrative Patient: Fiorella Snow : 1975 PCP: Petrona Perdomo MD SUBJECTIVE This is a 48 y.o. female that presents today for a chief complaint of pain to lateral aspect of the left foot for the past year that is increased in severity up to a 7/10. Patient denies any trauma but states that she has had increased swelling including pain and points to the 5th metatarsal midshaft region of the left foot. She has been taking anti-inflammatories with negative improvement. Allergies: Allergies Allergen Reactions Hydrocodone-Acetaminophen Rash Past Medical History: Past Medical History: Diagnosis Date GERD (gastroesophageal reflux disease) Skin condition resolved Medications: Current Outpatient Medications: albuterol HFA 90 mcg/act inhaler, Inhale 2 puffs every 6 (six) hours if needed for wheezing or shortness of breath, Disp: 18 g, Rfl: 5 cetirizine (ZyrTEC) 10 MG tablet, Take 10 mg by mouth in the morning., Disp: , Rfl: cyclobenzaprine (Flexeril) 10 MG tablet, Take 1 tablet (10 mg) by mouth 3 (three) times a day as needed for muscle spasms, Disp: 90 tablet, Rfl: 2 ibuprofen 800 MG tablet, Take 1 tablet (800 mg) by mouth every 8 (eight) hours if needed for mild pain, Disp: 90 tablet, Rfl: 5 lisinopril 10 MG tablet, Take 1 tablet (10 mg) by mouth Daily, Disp: 90 tablet, Rfl: 3 MAGNESIUM CITRATE PO, Take 400 mg by mouth Daily, Disp: , Rfl: metoprolol succinate XL (Toprol-XL) 25 MG 24 hr tablet, Take 1 tablet (25 mg) by mouth Daily Do not crush or chew., Disp: 100 tablet, Rfl: 3 Misc Natural Products (BEET ROOT PO), Take 1 tablet by mouth Daily [place] Beets Supplement, Disp: , Rfl: Multiple Vitamin (MULTIVITAMIN ADULT PO), Take 1 tablet by mouth Daily, Disp: , Rfl: Probiotic Product (PROBIOTIC PO), Take 1 capsule by mouth Daily, Disp: , Rfl: Social History: Social History Socioeconomic History Marital status: Spouse name: Not on file Number of children: Not on file Years of education: Not on file Highest education level: Not on file Occupational History Not on file Tobacco Use Smoking status: Former Types: Cigarettes Smokeless tobacco: Never Vaping Use Vaping status: Never Used Substance and Sexual Activity Alcohol use: Not Currently Comment: Caffeine intake: 1-2 cups per day Drug use: Never Sexual activity: Yes control/protection: Female Sterilization Other Topics Concern Not on file Social History Narrative Not on file Social Drivers of Health Financial Resource Strain: Medium Risk (10/07/2022) Overall Financial Resource Strain (CARDIA) Difficulty of Paying Living Expenses: Somewhat hard Food Insecurity: No Food Insecurity (10/07/2022) Hunger Vital Sign Worried About Running Out of Food in the Last Year: Never true Ran Out of Food in the Last Year: Never true Transportation Needs: No Transportation Needs (10/07/2022) PRAPARE - Transportation Lack of Transportation (Medical): No Lack of Transportation (Non-Medical): No Physical Activity: Inactive (10/07/2022) Exercise Vital Sign Days of Exercise per Week: 0 days Minutes of Exercise per Session: 0 min Stress: No Stress Concern Present (10/07/2022) [employer] - Occupational Stress Questionnaire Feeling of Stress : Not at all Social Connections: Unknown (10/07/2022) Social Connection and Isolation Panel [NHANES] Frequency of Communication with Friends and Family: More than three times a week Frequency of Social Gatherings with Friends and Family: Once a week Attends Caodaism Services: Patient declined Active Member of Clubs or Organizations: No Attends Club or Organization Meetings: Never Marital Status: Intimate Partner Violence: Not At Risk (10/07/2022) Humiliation, Afraid, Rape, and Kick questionnaire Fear of Current or Ex-Partner: No Emotionally Abused: No Physically Abused: No Sexually Abused: No Housing Stability: Unknown (10/07/2022) Housing Stability Vital Sign Unable to Pay for Housing in the Last Year: No Number of Places Lived in the Last Year: Not on file Unstable Housing in the Last Year: No ROS: Gastrointestinal: denies abdominal pain, ulcers, or changes in appetite or bowel habits Musculoskeletal: Positive generalized arthritis to joints and denies loss of strength. Cardiovascular: denies CP, palpitations, irregular rhythms OBJECTIVE LE EXAM: DERM: Positive hair growth to b/l feet with good skin turgor noted. Negative openings in skin. Mild edema to lateral aspect of the left 5th metatarsal region VASC: Palpable pedal pulsed b/l with warm to cool tibia to toes b/l NEURO: Gross sensation intact digits 1-10 and b/l feet ORTHO: +5/5 DF/PF/IN/EV right, +5/5 DF/PF/IN/EV left. 20 degrees inversion and 10 degrees eversion STJ b/l. Ankle ROM less than 10 degrees b/l. Positive pain on palpation to left metatarsal midshaft region XRAY: XR foot 3+ views left Imaging Result: Negative periosteal reaction noted left 5th metatarsal with negative gross fractures visualized and notable metatarsus adductus US: ASSESSMENT 1. Foot pain, left 2. Bilateral foot pain 3. Contusion of left foot, initial encounter 4. Stress fracture, left foot, initial encounter for fracture 5. Metatarsal deformity, left PLAN Pt dispensed pneumatic CAM walker ([id number]) today to maintain 90 degree foot to ankle position. Pt informed to only remove walker when at rest or bathing. ABN signed and in chart for device if warranted. The boot was assembled and adjusted liner and straps and pneumatically inflated for proper custom fitting by Roque Aiken DPM and staff. A verbal order was given for dispensing of device. The patient is ambulatory and may benefit functionally from this device. It may be used for the following conditions as noted per medical diagnosis. Prescription today for Medrol pack Pre-certify for inserts Roque Aiken DPM documented in this encounter [facility] 07-02-2024 History of Present illness Narrative Images from the original note were not included. Subjective Patient ID: Fiorella Snow is a 48 y.o. female who presents for Chest Pain. Pain started on Friday as a sharp pain that radiated to both armpits. States she gets these pain across her chest and they they go away. She did say the pain did her wake up. After she gets the pain she is burping more. She did say that she is taking more vitamins. She states if she touches it, it is tender. Happens even when she is just sitting. No diaphoresis, no nausea, no vomiting. No increase in SOB. Feels like she is choking or suffocating at times by her throat. Tried a few doses of the Semaglutide, but it was not effective and was too expensive to continue the medication. Pain in her feet has been really bad lately making it difficult to walk. Has tried arch support. Pain is mostly on the top part of her foot. Pain is sharp. Has been more stressed lately. 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 Has not seen her Chiropractor recently. States is taking a MV with biotin. Daily probiotic 3 billion CFU, has found those helpful. Also [place] Beets supplement. Magnesium Citrate 400 mg daily. Also Woman's MetaFLO skin with collagen supplement. Current Outpatient Medications on File Prior to Visit Medication Sig Dispense Refill albuterol HFA 90 mcg/act inhaler Inhale 2 puffs every 6 (six) hours if needed for wheezing or shortness of breath 18 g 5 cetirizine (ZyrTEC) 10 MG tablet Take 10 mg by mouth in the morning. ibuprofen 800 MG tablet Take 1 tablet (800 mg) by mouth every 8 (eight) hours if needed for mild pain 90 tablet 5 lisinopril 10 MG tablet Take 1 tablet (10 mg) by mouth Daily 90 tablet 3 MAGNESIUM CITRATE PO Take 400 mg by mouth Daily metoprolol succinate XL (Toprol-XL) 25 MG 24 hr tablet Take 1 tablet (25 mg) by mouth Daily Do not crush or chew. 100 tablet 3 Misc Natural Products (BEET ROOT PO) Take 1 tablet by mouth Daily [place] Beets Supplement Multiple Vitamin (MULTIVITAMIN ADULT PO) Take 1 tablet by mouth Daily Probiotic Product (PROBIOTIC PO) Take 1 capsule by mouth Daily [DISCONTINUED] Ebmdarp-Xbfdhcwqktu-Aifglzgufs (Breztri Aerosphere) 160-9-4.8 MCG/ACT aerosol Inhale 2 puffs in the morning and 2 puffs before bedtime. 10.7 g 5 [DISCONTINUED] cyclobenzaprine (Flexeril) 10 MG tablet Take 1 tablet (10 mg) by mouth 3 (three) times a day as needed for muscle spasms 90 tablet 0 [DISCONTINUED] Garlic 10 MG capsule Take by mouth Daily [DISCONTINUED] pantoprazole (ProtoNix) 20 MG EC tablet Take 1 tablet (20 mg) by mouth in the morning. Take before meals. (Patient not taking: Reported on 01/23/2024) 100 tablet 3 [DISCONTINUED] Semaglutide-Weight Management (Wegovy) 0.25 MG/0.5ML solution auto-injector Inject 0.25 mg under the skin 1 (one) time per week Getting through [facility] in [place] [DISCONTINUED] thiamine (Vitamin B-1) 50 MG tablet Take 50 mg by mouth Daily No current facility-administered medications on file prior to visit. I have reviewed and reconciled the history and medication list with the patient today. Allergies Allergen Reactions Hydrocodone-Acetaminophen Rash Social History Tobacco Use Smoking status: Former Types: Cigarettes Smokeless tobacco: Never Vaping Use Vaping status: Never Used Substance Use Topics Alcohol use: Not Currently Comment: Caffeine intake: 1-2 cups per day Drug use: Never Family History Problem Relation Name Age of Onset Ovarian cancer Mother Endometriosis Mother Lymphoma Mother Fibromyalgia Mother Uterine cancer Mother Diabetes Father Heart failure Father Hypertension Father Hyperlipidemia Father Kidney disease Father Thyroid disease Sister No Known Problems Daughter No Known Problems Son Endometriosis Sibling Past Medical History: Diagnosis Date GERD (gastroesophageal reflux disease) Skin condition resolved Past Surgical History: Procedure Laterality Date KNEE ARTHROSCOPY W/ DEBRIDEMENT Left 12/11/2022 [facility] LAPAROTOMY OVARIAN CYSTECTOMY OTHER SURGICAL HISTORY Cyro-Ablation TUBAL LIGATION Bilateral VAGINAL DELIVERY x2 Visit Vitals BP 108/68 Pulse 65 Resp 17 Ht 5' 5.5 Wt 322 lb 3.2 oz SpO2 98% BMI 52.80 kg/m OB Status Having periods Smoking Status Former BSA 2.6 m Review of Systems Constitutional: Negative for chills, fatigue and fever. Respiratory: Negative for cough, shortness of breath and wheezing. Cardiovascular: Positive for chest pain. Negative for palpitations and leg swelling. Gastrointestinal: Negative for abdominal pain, constipation, diarrhea, nausea and vomiting. Musculoskeletal: Positive for arthralgias and gait problem. Skin: Negative for rash. Objective Physical Exam Constitutional: General: She is not in acute distress. Appearance: She is well-developed. She is obese. HENT: Head: Normocephalic and atraumatic. Eyes: General: No scleral icterus. Conjunctiva/sclera: Conjunctivae normal. Cardiovascular: Rate and Rhythm: Normal rate and regular rhythm. Pulses: Dorsalis pedis pulses are 2+ on the right side and 2+ on the left side. Heart sounds: Normal heart sounds. No murmur heard. Pulmonary: Effort: Pulmonary effort is normal. No respiratory distress. Breath sounds: Normal breath sounds. No wheezing, rhonchi or rales. Chest: Chest wall: Tenderness present. Comments: Tender along right side of upper sternum, over sternocostal junctions Musculoskeletal: Right foot: Normal range of motion. Left foot: Normal range of motion. Feet: Comments: Positive squeeze test bilateral feet Skin: General: Skin is warm and dry. Neurological: General: No focal deficit present. Mental Status: She is alert and oriented to person, place, and time. Sensory: No sensory deficit. Motor: No weakness. Gait: Gait normal. Psychiatric: Mood and Affect: Mood normal. Behavior: Behavior normal. Assessment/Plan Diagnoses and all orders for this visit: Muscle spasms of both lower extremities - cyclobenzaprine (Flexeril) 10 MG tablet; Take 1 tablet (10 mg) by mouth 3 (three) times a day as needed for muscle spasms Provided pt with Cyclobenzaprine Rx to start as needed. Advised this may help with her chest wall symptoms as well. Cautioned it may cause drowsiness. Chest wall pain Patient is markedly tender along sternocostal junctions on right side, possibly rib cage dysfunction. Has seen a Chiropractor in the past. Encouraged her to schedule an appointment to be adjusted. Low suspicion for cardiac cause of pt's symptoms. Advised if symptoms worsen she is to contact the office, ER if concerns. Bilateral foot pain - Ambulatory referral to Podiatry; Future Referred to Podiatry for further evaluation and treatment, r/o [facility]'s Neuromas due to exam findings. Follow up if symptoms worsen or fail to improve. documented in this encounter [facility] 01-28-2024 Telephone encounter Note Prescription filled out and will be faxed to [facility] in [place]. [facility] 01-28-2024 Miscellaneous Notes Prescription filled out and will be faxed to [facility] in [place]. Patient called back and she said to send it to the [facility] in [place] Lm on pt vm with mess from akash and she needs to call back to let us know which one Please ask pt if she would like to use [facility] in [place] or [facility] in [place]. Cost is going to be around $200 a month. Pt called stating that wegovy is $1300 with insurance plus her pharmacy told her that the manufacture is out. Same with the Zepbound. She would like know more and possibly go the route of the compound pharmacy. documented in this encounter [facility] 01-28-2024 Telephone encounter Note Patient called back and she said to send it to the medicine [facility] in [place] [facility] 01-28-2024 Telephone encounter Note Lm on pt vm with mess from [employer] and she needs to call back to let us know which one [facility] 01-28-2024 Telephone encounter Note Please ask pt if she would like to use [facility] in [place] or [facility] in [place]. Cost is going to be around $200 a month. [facility] 10-23-2024 Telephone encounter Note Pt called stating that demarcus is $1300 with insurance plus her pharmacy told her that the manufacture is out. Same with the [employer]. She would like know more and possibly go the route of the compound pharmacy. [facility] 01-23-2024 History of Present illness Narrative Images from the original note were not included. Subjective Patient ID: Fiorella Snow is a 48 y.o. female who presents for weight check. Fiorella is present today for a weight check. Started Adipex 07/04/23. 07/04/23 wt - 328 10/03/23 wt - 321 Today wt - 327.4 Pt states she is only eating once a day at around 6 - 8 pm. 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 She has not been remembering to take her Adipex, she only remembers to take it around 2 days a week. States has cut back on portion sizes. States her pants fit better. Current Outpatient Medications on File Prior to Visit Medication Sig Dispense Refill albuterol HFA 90 mcg/act inhaler Inhale 2 puffs every 6 (six) hours if needed for wheezing or shortness of breath 18 g 5 Erysoco-Zjxiwiswllv-Djoawofdnp (Breztri Aerosphere) 160-9-4.8 MCG/ACT aerosol Inhale 2 puffs in the morning and 2 puffs before bedtime. 10.7 g 5 cetirizine (ZyrTEC) 10 MG tablet Take 10 mg by mouth in the morning. cyclobenzaprine (Flexeril) 10 MG tablet Take 1 tablet (10 mg) by mouth 3 (three) times a day as needed for muscle spasms 90 tablet 0 Garlic 10 MG capsule Take by mouth Daily ibuprofen 800 MG tablet Take 1 tablet (800 mg) by mouth every 8 (eight) hours if needed for mild pain 90 tablet 5 lisinopril 10 MG tablet Take 1 tablet (10 mg) by mouth Daily 90 tablet 3 metoprolol succinate XL (Toprol-XL) 25 MG 24 hr tablet Take 1 tablet (25 mg) by mouth Daily Do not crush or chew. 100 tablet 3 pantoprazole (ProtoNix) 20 MG EC tablet Take 1 tablet (20 mg) by mouth in the morning. Take before meals. (Patient not taking: Reported on 01/23/2024) 100 tablet 3 thiamine (Vitamin B-1) 50 MG tablet Take 50 mg by mouth Daily [DISCONTINUED] furosemide (Lasix) 20 MG tablet Take 0.5-1 tablets (10-20 mg) by mouth Daily as needed (swelling) 30 tablet 5 [DISCONTINUED] phentermine (Adipex-P) 37.5 MG tablet Take 1 tablet (37.5 mg) by mouth in the morning. Take before meals. 30 tablet 0 No current facility-administered medications on file prior to visit. I have reviewed and reconciled the history and medication list with the patient today. Allergies Allergen Reactions Hydrocodone-Acetaminophen Rash Social History Tobacco Use Smoking status: Former Types: Cigarettes Smokeless tobacco: Never Vaping Use Vaping status: Never Used Substance Use Topics Alcohol use: Not Currently Comment: Caffeine intake: 1-2 cups per day Drug use: Never Family History Problem Relation Name Age of Onset Ovarian cancer Mother Endometriosis Mother Lymphoma Mother Fibromyalgia Mother Uterine cancer Mother Diabetes Father Heart failure Father Hypertension Father Hyperlipidemia Father Kidney disease Father Thyroid disease Sister No Known Problems Daughter No Known Problems Son Endometriosis Sibling Past Medical History: Diagnosis Date GERD (gastroesophageal reflux disease) Skin condition resolved Past Surgical History: Procedure Laterality Date KNEE ARTHROSCOPY W/ DEBRIDEMENT Left 12/11/2022 [facility] LAPAROTOMY OVARIAN CYSTECTOMY OTHER SURGICAL HISTORY Cyro-Ablation TUBAL LIGATION Bilateral VAGINAL DELIVERY x2 Visit Vitals BP 132/90 Pulse 64 Resp 18 Ht 5' 5.5 Wt 327 lb 6.4 oz SpO2 96% BMI 53.65 kg/m OB Status Having periods Smoking Status Former BSA 2.62 m Review of Systems Constitutional: Positive for unexpected weight change (Gain). Negative for chills, fatigue and fever. Respiratory: Negative for cough, shortness of breath and wheezing. Cardiovascular: Negative for chest pain, palpitations and leg swelling. Gastrointestinal: Negative for abdominal pain, constipation, diarrhea, nausea and vomiting. Skin: Negative for rash. Objective Physical Exam Constitutional: General: She is not in acute distress. Appearance: She is well-developed. She is obese. HENT: Head: Normocephalic and atraumatic. Eyes: General: No scleral icterus. Conjunctiva/sclera: Conjunctivae normal. Cardiovascular: Rate and Rhythm: Normal rate and regular rhythm. Heart sounds: Normal heart sounds. No murmur heard. Pulmonary: Effort: Pulmonary effort is normal. No respiratory distress. Breath sounds: Normal breath sounds. No wheezing, rhonchi or rales. Musculoskeletal: Right lower leg: Edema present. Left lower leg: Edema present. Skin: General: Skin is warm and dry. Neurological: General: No focal deficit present. Mental Status: She is alert and oriented to person, place, and time. Psychiatric: Mood and Affect: Mood normal. Behavior: Behavior normal. Assessment/Plan Diagnoses and all orders for this visit: Primary hypertension (CMS/HCC) - Semaglutide-Weight Management (Wegovy) 0.25 MG/0.5ML solution auto-injector; Inject 0.25 mg under the skin 1 (one) time per week BP mildly elevated today. Continue current medications for now. Will recheck at follow up and adjust medication if needed. Morbid obesity (CMS/HCC) - Semaglutide-Weight Management (Wegovy) 0.25 MG/0.5ML solution auto-injector; Inject 0.25 mg under the skin 1 (one) time per week Discussed weight loss options with the patient. Cardiovascular benefits of weight loss reviewed. Encouraged portion control, decrease simple sugars and carbohydrates, and gradually increase activity level. Discussed Semaglutide injections with patient. Reviewed how the medication works in the body by decreasing glucagon secretion, slowing gastric emptying, increasing satiety, increasing glucose uptake into muscles, and increasing insulin secretion in response to glucose. Also reviewed potential s/e, including but not limited to headache, GI s/e, pancreatitis, gall bladder disease, and impaired kidney function. Advised it is a once-a-week injection. Reviewed where to give the injection, inject into the subcutaneous tissue of the abdomen, avoiding a 1 inch diomede around the belly button. Patient denies any personal or family history of thyroid cancer or pancreatitis. Can increase the dosage monthly as tolerated to maximize benefit. Goal will be gradual steady weight loss. Advised will need to be seen in the office routinely to reassess tolerability and efficacy of the medication. Weight gain Has gained 6.4 pounds since her last appointment. Follow up in about 3 months (around 04/24/2024) for Medication Follow Up. documented in this encounter [facility] 01-06-2024 Telephone encounter Note OARRS reviewed, Rx sent into patient's pharmacy. [facility] 01-06-2024 Miscellaneous Notes OARRS reviewed, Rx sent into patient's pharmacy. Has a 3 month follow up for weight check on 01/23/24. phentermine (Adipex-P) 37.5 MG tablet [facility] documented in this encounter [facility] 01-06-2024 Telephone encounter Note Has a 3 month follow up for weight check on 01/23/24. [facility] 01-06-2024 Telephone encounter Note phentermine (Adipex-P) 37.5 MG tablet [facility] 11-28-2023 Telephone encounter Note OARRS reviewed, Rx sent into patient's pharmacy. [facility] 11-28-2023 Miscellaneous Notes OARRS reviewed, Rx sent into patient's pharmacy. phentermine (Adipex-P) 37.5 MG tablet [facility] documented in this encounter [facility] 11-28-2023 Telephone encounter Note phentermine (Adipex-P) 37.5 MG tablet [facility] 05-14-2023 Telephone encounter Note TE created in err [facility] 05-14-2023 Miscellaneous Notes TE created in err documented in this encounter [facility] 05-09-2023 History of Present illness Narrative Subjective Patient ID: Fiorella Snow is a 47 y.o. female who presents for follow up on hypertension. Fiorella is present today for a follow up on hypertension. She is still taking metoprolol. She doesn't check B/P at home. Has no complaints at this time. Questions about heel study on tv in waiting room. Has right heel pain. Has been dealing with it since dealing with knee pain. Has broken her right heel in the past. Pain is worst when she first has to put wait on it. Has put some Biofreeze on it. Using arch support with some improvement. Is stretching her foot. 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 Current Outpatient Medications on File Prior to Visit Medication Sig Dispense Refill albuterol HFA 90 mcg/act inhaler Inhale 2 puffs every 6 (six) hours if needed for wheezing or shortness of breath. 18 g 5 Enewxit-Mznjnwwkjvl-Ciinxuakvh (Breztri Aerosphere) 160-9-4.8 MCG/ACT aerosol Inhale 2 puffs in the morning and 2 puffs before bedtime. 10.7 g 5 cetirizine (ZyrTEC) 10 MG tablet Take 10 mg by mouth in the morning. cyclobenzaprine (Flexeril) 10 MG tablet See Instructions, PRN for spasm, 1/2 - 1 tab po BID prn, # 30 tab(s), Refills(s) 0, Pharmacy: [id number], 165, cm, 03/21/21 7:17:00 EST, Height/Length Dosing, 117, kg, 03/21/21 7:17:00 EST, Weight Dosing metoprolol succinate XL (Toprol-XL) 25 MG 24 hr tablet Take 1 tablet (25 mg) by mouth in the morning. Do not crush or chew.. 30 tablet 2 pantoprazole (ProtoNix) 20 MG EC tablet Take 1 tablet (20 mg) by mouth in the morning. Take before meals. 100 tablet 3 [DISCONTINUED] furosemide (Lasix) 40 MG tablet Take 1 tablet (40 mg) by mouth in the morning. (Patient not taking: Reported on 05/09/2023) 100 tablet 3 No current facility-administered medications on file prior to visit. Allergies Allergen Reactions Hydrocodone-Acetaminophen Rash Social History Tobacco Use Smoking status: Former Types: Cigarettes Smokeless tobacco: Never Vaping Use Vaping Use: Never used Substance Use Topics Alcohol use: Not Currently Comment: Caffeine intake: 1-2 cups per day Drug use: Never Family History Problem Relation Name Age of Onset Ovarian cancer Mother Endometriosis Mother Lymphoma Mother Fibromyalgia Mother Uterine cancer Mother Diabetes Father Heart failure Father Hypertension Father Hyperlipidemia Father Kidney disease Father Thyroid disease Sister Endometriosis Sibling Past Medical History: Diagnosis Date GERD (gastroesophageal reflux disease) Skin condition resolved Past Surgical History: Procedure Laterality Date KNEE ARTHROSCOPY W/ DEBRIDEMENT Left 12/11/2022 [facility] LAPAROTOMY OVARIAN CYSTECTOMY OTHER SURGICAL HISTORY Cyro-Ablation TUBAL LIGATION Bilateral VAGINAL DELIVERY x2 Visit Vitals BP 140/85 Pulse 65 Resp 15 Wt 327 lb 9.6 oz SpO2 97% BMI 53.69 kg/m OB Status Having periods Smoking Status Former BSA 2.62 m Review of Systems Constitutional: Negative for chills, fatigue and fever. Respiratory: Negative for cough, shortness of breath and wheezing. Cardiovascular: Negative for chest pain, palpitations and leg swelling. Gastrointestinal: Negative for abdominal pain, constipation, diarrhea, nausea and vomiting. Musculoskeletal: Positive for arthralgias. Skin: Negative for rash. Objective Physical Exam Constitutional: General: She is not in acute distress. Appearance: She is well-developed. She is obese. HENT: Head: Normocephalic and atraumatic. Eyes: General: No scleral icterus. Conjunctiva/sclera: Conjunctivae normal. Cardiovascular: Rate and Rhythm: Normal rate and regular rhythm. Heart sounds: Normal heart sounds. No murmur heard. Pulmonary: Effort: Pulmonary effort is normal. No respiratory distress. Breath sounds: Normal breath sounds. No wheezing, rhonchi or rales. Skin: General: Skin is warm and dry. Neurological: General: No focal deficit present. Mental Status: She is alert and oriented to person, place, and time. Psychiatric: Mood and Affect: Mood normal. Behavior: Behavior normal. Assessment/Plan Diagnoses and all orders for this visit: Intractable right heel pain - XR calcaneus 2 views right; Future Possibly plantar fasciitis. Discussed this condition with the patient. Encouraged patient to stretch feet before getting out of bed in the mornings, or after sitting for an extended period of time prior to standing, reviewed dorsiflexion. Encouraged patient to roll feet over a frozen water bottle after getting off of work or after prolonged walking/standing, wear socks to avoid ice directly on the skin. Can continue to apply topical anti-inflammatory cream to bottom of feet prior to going to sleep at night. Encouraged continue good supportive shoes with arch support. If no improvement with conservative treatment would recommend referral to Podiatry for further evaluation and treatment. Did order x-rays for pt to have done due to history of previous injury. Primary hypertension (CMS/HCC) - olmesartan (Benicar) 20 MG tablet; Take 1 tablet (20 mg) by mouth in the morning. Continue Metoprolol daily. Will add Olmesartan daily. Discussed potential s/e including but not limited to electrolyte abnormalities and angioedema. Will recheck BP in one month. Goal remains < 130/80. Limit salt in diet. Stay hydrated. Bilateral lower extremity edema Swelling mostly stable without the Furosemide. Pt couldn't tolerate the increased urination. Elevate legs when possible. Will continue to monitor. Morbid obesity (CMS/HCC) Encouraged portion control, decrease simple sugars and carbohydrates, gradually increase activity level. Aim for gradual steady weight loss. Weight gain Reviewed previous lab work with patient. Follow up in about 4 weeks (around 06/06/2023) for Hypertension. documented in this encounter [facility] 12-04-2022 Note [id number] [facility] Evaluation + Plan note No data available for this section [facility] Evaluation + Plan note Future Appointments Appointment Date:10/17/2022 03:30:00 PM Scheduled Provider:Crescencio DUKES CNP Location:[facility] Occupational Health Appointment Type:IH Injury Follow up [facility] () [facility] Evaluation + Plan note Future Appointments Appointment Date:12/11/2022 02:30:00 PM Scheduled Provider: Location:[facility] Surgical Services Appointment Type:Surgery FT [facility] Evaluation note Diagnosis Intractable right heel pain- Primary Primary hypertension (CMS/HCC) Unspecified essential hypertension Bilateral lower extremity edema Morbid obesity (CMS/HCC) Morbid obesity Weight gain Other symptoms concerning nutrition, metabolism, and development documented in this encounter [facility]* Diagnosis Morbid obesity (CMS/HCC) Morbid obesity documented in this encounter [facility]* Diagnosis Primary hypertension (CMS/HCC)- Primary Unspecified essential hypertension Morbid obesity (CMS/HCC) Morbid obesity Weight gain Other symptoms concerning nutrition, metabolism, and development documented in this encounter [facility]* Diagnosis Primary hypertension (CMS/HCC) Unspecified essential hypertension Morbid obesity (CMS/HCC) Morbid obesity documented in this encounter [facility]* Diagnosis Morbid obesity (CMS/HCC) Morbid obesity documented in this encounter [facility]* Diagnosis Muscle spasms of both lower extremities- Primary Chest wall pain Painful respiration Bilateral foot pain documented in this encounter [facility]* Diagnosis Metatarsal deformity, left- Primary documented in this encounter [facility]* Diagnosis Foot pain, left- Primary Pain in soft tissues of limb Bilateral foot pain Contusion of left foot, initial encounter Stress fracture, left foot, initial encounter for fracture Metatarsal deformity, left documented in this encounter [facility]* Diagnosis Stress fracture, left foot, initial encounter for fracture- Primary documented in this encounter [facility]* Diagnosis Wellness examination- Primary Primary hypertension Unspecified essential hypertension Hyperinsulinemia Bilateral lower extremity edema Morbid obesity ([facility]) Morbid obesity Weight gain Other symptoms concerning nutrition, metabolism, and development Leukocytes in urine Other nonspecific finding on examination of urine Adenomyosis Endometriosis of uterus Chronic fatigue Other malaise and fatigue Chronic GERD Notalgia paresthetica Disturbance of skin sensation Severe obstructive sleep apnea Chest tightness Other chest pain Fibromyalgia Unspecified myalgia and myositis Former smoker Personal history of tobacco use, presenting hazards to health Generalized headaches Headache History of blood clots History of COVID-19 Stress incontinence Female stress incontinence Urge urinary incontinence Urge incontinence Generalized anxiety disorder Generalized anxiety disorder Moderate persistent asthma without complication ([facility]) S/P left knee arthroscopy Left anterior knee pain Pelvic pain ZHENG (dyspnea on exertion) Other dyspnea and respiratory abnormality documented [facility] this encounter [facility]ative* Roque Aiken, STANISLAW - 07/29/2024 4:50 PM EDT Patient: Fiorella Snow : 1975 PCP: Petrona Perdomo MD SUBJECTIVE This is a 48 y.o. female that presents today for a 1 month follow up of suspected left 5th metatarsal stress fracture. Patient rates pain a 5/10. Patient has been using a walking boot as taking a steroid pack with positive improvement. Allergies: Allergies Allergen Reactions Hydrocodone-Acetaminophen Rash Past Medical History: Past Medical History: Diagnosis Date GERD (gastroesophageal reflux disease) Skin condition resolved Medications: Current Outpatient Medications: albuterol HFA 90 mcg/act inhaler, Inhale 2 puffs every 6 (six) hours if needed for wheezing or shortness of breath, Disp: 18 g, Rfl: 5 cetirizine (ZyrTEC) 10 MG tablet, Take 10 mg by mouth in the morning., Disp: , Rfl: cyclobenzaprine (Flexeril) 10 MG tablet, Take 1 tablet (10 mg) by mouth 3 (three) times a day as needed for muscle spasms, Disp: 90 tablet, Rfl: 2 ibuprofen 800 MG tablet, Take 1 tablet (800 mg) by mouth every 8 (eight) hours if needed for mild pain, Disp: 90 tablet, Rfl: 5 lisinopril 10 MG tablet, Take 1 tablet (10 mg) by mouth Daily, Disp: 90 tablet, Rfl: 3 MAGNESIUM CITRATE PO, Take 400 mg by mouth Daily, Disp: , Rfl: methylPREDNISolone (Medrol Dospak) 4 MG tablets, Follow schedule on MEDROL PACK package instructions to be used as directed, Disp: 21 tablet, Rfl: 0 metoprolol succinate XL (Toprol-XL) 25 MG 24 hr tablet, Take 1 tablet (25 mg) by mouth Daily Do notcrush or chew., Disp: 100 tablet, Rfl: 3 Misc Natural Products (BEET ROOT PO), Take 1 tablet by mouth Daily [place] Beets Supplement, Disp: , Rfl: Multiple Vitamin (MULTIVITAMIN ADULT PO), Take 1 tablet by mouth Daily, Disp: , Rfl: Probiotic Product (PROBIOTIC PO), Take 1 capsule by mouth Daily, Disp: , Rfl: Social History: Social History Socioeconomic History Marital status: Spouse name: Not on file Number of children: Not on file Years of education: Not on file Highest education level: Not on file Occupational History Not on file Tobacco Use Smoking status: Former Types: Cigarettes Smokeless tobacco: Never Vaping Use Vaping status: Never Used Substance and Sexual Activity Alcohol use: Not Currently Comment: Caffeine intake: 1-2 cups per day Drug use: Never Sexual activity: Yes control/protection: Female Sterilization Other Topics Concern Not on file Social History Narrative Not on file Social Drivers of Health Financial Resource Strain: Medium Risk (10/07/2022) Overall Financial Resource Strain (CARDIA) Difficulty of Paying Living Expenses: Somewhat hard Food Insecurity: No Food Insecurity (10/07/2022) Hunger Vital Sign Worried About Running Out of Food in the Last Year: Never true Ran Out of Food in the Last Year: Never true Transportation Needs: No Transportation Needs (10/07/2022) PRAPARE - Transportation Lack of Transportation (Medical): No Lack of Transportation (Non-Medical): No Physical Activity: Inactive (10/07/2022) Exercise Vital Sign Days of Exercise per Week: 0 days Minutes of Exercise per Session: 0 min Stress: No Stress Concern Present (10/07/2022) [employer] - Occupational Stress Questionnaire Feeling of Stress : Not at all Social Connections: Unknown (10/07/2022) Social Connection and Isolation Panel [NHANES] Frequency of Communication with Friends and Family: More than three times a week Frequency of Social Gatherings with Friends and Family: Once a week Attends Caodaism Services: Patient declined Active Member of Clubs or Organizations: No Attends Club or Organization Meetings: Never Marital Status: Intimate Partner Violence: Not At Risk (10/07/2022) Humiliation, Afraid, Rape, and Kick questionnaire Fear of Current or Ex-Partner: No Emotionally Abused: No Physically Abused: No Sexually Abused: No Housing Stability: Unknown (10/07/2022) Housing Stability Vital Sign Unable to Pay for Housing in the Last Year: No Number of Places Lived in the Last Year: Not on file Unstable Housing in the Last Year: No ROS: Gastrointestinal: denies abdominal pain, ulcers, or changes in appetite or bowel habits Musculoskeletal: Positive generalized arthritis to joints and denies loss of strength. Cardiovascular: denies CP, palpitations, irregular rhythms OBJECTIVE LE EXAM: DERM: Positive hair growth to b/l feet with good skin turgor noted. Negative openings in skin. diminished edema to lateral aspect of the left 5th metatarsal region VASC: Palpable pedal pulsed b/l with warm to cool tibia to toes b/l NEURO: Gross sensation intact digits 1-10 and b/l feet ORTHO: +5/5 DF/PF/IN/EV right, +5/5 DF/PF/IN/EV left. 20 degrees inversion and 10 degrees eversion STJ b/l. Ankle ROM less than 10 degrees b/l. minimal pain on palpation to left metatarsal midshaft region XRAY: XR foot 3+ views left Imaging Result: Notable slight irregularity the neck of the left 5th metatarsal with negative periosteal reaction US: ASSESSMENT 1. Stress fracture, left foot, initial encounter for fracture PLAN Patient to continue with oral anti - inflammatories as needed for pain and recommended OTC medications such as tylenol or Ibuprofen Reviewed xrays today with patient Continue walking boot Roque Aiken DPM [facility] No data available for this section [facility] No data available for this section [facility] Summary Purpose Family History No Family History Records FoundNo Family History Records FoundNo Family History Records FoundNo Family History Records Found Advance Directives No Advanced Directives Records FoundNo Advanced Directives Records FoundNo Advanced Directives Records FoundNo Advanced Directives Records Found Additional Source Comments <item> Privacy Markings (unrecogniz ed section and content) Section Author: Kylah Ba PROHIBITION ON REDISCLOSURE OF CONFIDENTIAL INFORMATION This notice accompanies a disclosure of information concerning a client made to you with the consent of such client. INFORMATION SOURCE (unrecogn ized section and content) DATE CREATED AUTHOR 09/25/2021 [facility] DATE CREATED AUTHOR AUTHOR'S ORGANIZ ATION 09/27/2023 [facility] DATE CREATED AUTHOR AUTHOR'S ORGANIZ ATION 12/25/2024 [facility] DATE CREATED AUTHOR AUTHOR'S ORGANIZ ATION 12/26/2024 [facility] Diagnostic s Patient Care team informatio n (unrecognized section and content) Manager Nuclear Relationship Specialty Start Date End Date Petrona Perdomo MD [address] [facility] [address] [place] [address] PCP - General Family Medicine 09/06/22 Petrona Perdomo MD [address] [facility] [address] [place] [address] Family Medicine 09/06/22 Nikki Muhammad NP [address] [facility] [address] [place] [address] Nurse Practitioner Family Medicine 08/28/22 Manager Nuclear Relationship Specialty Start Date End Date Petrona Perdomo MD [address] [facility] [address] [place] [address] PCP - General Family Medicine 09/06/22 Petrona Perdomo MD [address] [facility] [address] [place] [address] Family Medicine 09/06/22 Nikki Muhammad NP [address] [facility] [address] [place] [address] Nurse Practitioner Family Medicine 08/28/22 Manager Nuclear Relationship Specialty Start Date End Date Petrona Perdomo MD [address] [facility] [address] [place] [address] PCP - General Family Medicine 09/06/22 Petrona Perdomo MD [address] [facility] [address] [place] [address] Family Medicine 09/06/22 Nikki Muhammad NP [address] [facility] [address] [place] [address] Nurse Practitioner [facility] Medicine 08/28/22 Manager Nuclear Relationship Specialty Start Date End Date Petrona Perdomo MD [address] [facility] [address] [place] [address] PCP - General Family Medicine 09/06/22 [place] [address] PCP [facility] 07/07/23 Petrona Perdomo MD [address] [facility] [address] [place] [address] Family Medicine 09/06/22 Nikki Muhammad NP [address] [facility] [address] [place] [address] Nurse Practitioner Family Medicine 08/28/22 Manager Nuclear Relationship Specialty Start Date End Date Petrona Perdomo MD [address] [facility] [address] [place] [address] PCP - General Family Medicine 09/06/22 Nikki Muhammad NP [address] [place] [address] PCP - [facility] 07/07/23 Petrona Perdomo MD [address] [facility] [address] [place] [address] Family Medicine 09/06/22 Nikki Muhammad NP [address] [facility] [address] [place] [address] Nurse Practitioner Family Medicine 08/28/22 Manager Nuclear Relationship Specialty Start Date End Date Petrona Perdomo MD [address] [facility] [address] [place] [address] PCP - General Family Medicine 09/06/22 Nikki Muhammad NP [address] [place] [address] PCP - [facility] [employer] 07/07/23 Petrona Perdomo MD [address] [facility] [address] [place] [address] Family Medicine 09/06/22 Nikki Muhammad NP [address] [facility] [address] [place] [address] Nurse Practitioner Family Medicine 08/28/22 Manager Nuclear Relationship Specialty Start Date End Date Petrona Perdomo MD [address] [facility] [address] [place] [address] PCP - General Family Medicine 09/06/22 Nikki Muhammda NP [address] [place] [address] PCP - [facility] [employer] 07/07/23 Petrona Perdomo MD [address] [facility] [address] [place] [address] Family Medicine 09/06/22 Nikki Muhammad NP [address] [facility] [address] [place] [address] Nurse Practitioner Family Medicine 08/28/22 Manager Nuclear Relationship Specialty Start Date End Date Petrona Perdomo MD [address] [place] [address] PCP - General Family Medicine 09/06/22 Nikki Muhammad NP [address] [place] [address] PCP - [facility] [employer] 07/07/23 Petrona Perdomo MD [address] [facility] [address] [place] [address] Family Medicine 09/06/22 Nikki Muhammad NP [address] [facility] [address] [place] [address] Nurse Practitioner Family Medicine 08/28/22 Manager Nuclear Relationship Specialty Start Date End Date Petrona Perdomo MD [address] [facility] [address] [place] [address] PCP - General Family Medicine 09/06/22 Nikki Muhammad NP [address] [place] [address] PCP - [facility] [employer] 07/07/23 Petrona Perdomo MD [address] [facility] [address] [place] [address] Family Medicine 09/06/22 Nikki Muhammad NP [address] [facility] [address] [place] [address] Nurse Practitioner Family Medicine 08/28/22 Manager Nuclear Relationship Specialty Start Date End Date Petrona Perdomo MD [address] [facility] [address] [place] [address] PCP - General Family Medicine 09/06/22 Nikki Muhammad NP [address] [place] [address] PCP - [facility] [employer] 07/07/23 Petrona Perdomo MD [address] [facility] [address] [place] [address] Family Medicine 09/06/22 Nikki Muhammad NP [address] [facility] [address] [place] [address] Nurse Practitioner Family Medicine 08/28/22 Manager Nuclear Relationship Specialty Start Date End Date Petrona Perdomo MD [address] [facility] [address] [place] [address] PCP - General Family Medicine 09/06/22 Nikki Muhammad NP [address] [place] [phone] PCP - [facility] [employer] 07/07/23 Petrona Perdomo MD [address] [facility] [address] [place] [address] Family Medicine 09/06/22 Nikki Muhammad NP [address] [facility] [address] [place] [address] Nurse Practitioner Family Medicine 08/28/22 Manager Nuclear Relationship Specialty Start Date End Date Petrona Perdomo MD [address] [facility] [address] [place] [address] PCP - General Family Medicine 09/06/22 Nikki Muhammad NP [address] [place] [phone] PCP - [facility] [employer] 07/07/23 Petrona Perdomo MD [address] [facility] [address] [place] [address] Family Medicine 09/06/22 Nikki Muhammad NP [address] [facility] [address] [place] [address] Nurse Practitioner Family Medicine 08/28/22 Manager Nuclear Relationship Specialty Start Date End Date Petrona Perdomo MD [address] [facility] [address] [place] [address] PCP - General Family Medicine 09/06/22 Nikki Muhammad NP [address] [place] [phone] PCP - [facility] 07/07/23 Petrona Perdomo MD [address] [facility] [address] [place] [address] Family Medicine 09/06/22 Nikki Muhammad NP [address] [facility] [address] [place] [address] Nurse Practitioner Family Medicine 08/28/22 Manager Nuclear Relationship Specialty Start Date End Date Petrona Perdomo MD [address] [facility] [address] [place] [address] PCP - General Family Medicine 09/06/22 Petrona Perdomo MD [address] [facility] [address] [place] [address] Family Medicine 09/06/22 Nikki Muhammad NP [address] [facility] [address] [place] [address] Nurse Practitioner Family Medicine 08/28/22 Reason for Visit (unrecogniz ed section and content) Reason Onset Date Comments Med Refill 01/06/2024 Reason Onset Date Comments Med Refill 11/28/2023 Reason Comments Chest Pain Reason Onset Date Comments Casting For Braces Or Orthotics 07/15/2024 Reason Comments Foot Pain Specialty Diagnoses / Procedures Referred By Contac t Referred To Contact Podiatry Diagnoses Bilateral foot pain Procedures HI OFFICE/OUTPATIENT NEW HIGH MDM 60 MINUTES Akash Crooks PA [address] [facility] [address] [place] [address] Phone: tel: fax: Roque Aiken [facility] [address] [place] [address] Phone: tel: fax: Referral ID Status Reason Start Date Expiration Date V isits Requested Visits Authorized [id number] Closed Specialty Services Required 07/02/2024 12/29/2024 1 1 Reason Comments Follow-up Lt5th met fx Reason Comments Annual Exam FOR RECORDS PERTAINING TO PATIENTS WHO ARE OR HAVE BEEN ENROLLED IN A CHEMICAL DEPENDENCY/SUBSTANCEABUSE PROGRAM, SOME INFORMATION MAY BE OMITTED. This clinical summary was aggregated from multiple sources. Caution should be exercised in using it in the provision of clinical care. This summary normalizes information from multiple sources, and as a consequence, information in this document may materially change the coding, format and clinical context of patient data. In addition, data may be omitted in some cases. CLINICAL DECISIONS SHOULD BE BASED ON THE PRIMARY CLINICAL RECORDS. [employer] provides no warranty or guarantee of the accuracy or completeness of information in this document.
== END 2024-12-31 09:03 | disposition home or self-care (01) ==
LOC: CARD 09:12
PROVIDERS: PCP Family Medicine; Visit Provider Physician Assistant
DX: R60.0 Localized edema (principal); I10 Essential (primary) hypertension; R63.5 Abnormal weight gain; R53.82 Chronic fatigue, unspecified; G47.33 Obstructive sleep apnea (adult) (pediatric); R07.89 Other chest pain; R06.09 Other forms of dyspnea
CPT/HCPCS: 93306